=== PATIENT | male | born 1955 | race Caucasian/White ===

== ENCOUNTER 2019-09-09 13:51 | Inpatient (IN) ==
--- NOTE | 2019-09-09 14:05 | ERNOTE ---
Neuro HPI ER Record Date of Service: 09/09/19 Presenting Symptoms: confusion Time Seen by Provider: 09/09/19 13:56 Source: patient, EMS, RN notes reviewed, past records Exam Limitations: clinical condition Immunizations: IMMUNIZATION HX Immunizations Up to Date Yes History of Influenza Vaccine Yes Hx Pneumococcal Vaccination No Allergies/Adverse Reactions: Allergies Allergy/AdvReac Type Severity Reaction Status Date / Time atenolol Allergy Mild foggy brain Verified 09/09/19 14:05 naproxen [From Naprosyn] Allergy Mild odd feeling Verified 09/09/19 14:05 varenicline [From Chantix] Allergy Mild weird Verified 09/09/19 14:05 dreams Home Medications: HOME MEDICATIONS losartan 100 mg tablet 100 mg PO DAILY #30 tab 04/15/19 [Last Taken Unknown] naloxone 4 mg/actuation nasal spray 4 mg INTRANASAL Q2M PRN #2 ea 04/15/19 [Last Taken Unknown] Fluticasone Propionate [Flonase] 1 spray NS DAILY 09/09/19 [Last Taken Unknown] - History of Present Illness Narrative: Rad is a 63-year-old male brought to the emergency department by ambulance from his apartment. A well check was requested by a friend who checks on him. He was found to be sitting in his recliner nude, covered with smears of his own feces. He is emaciated and generally ill in appearance. He denies any discomfort. He is able to correctly state his name and the year, but is otherwise disoriented. He is not able to provide any history regarding his current state. His friend reported to nursing staff that he is not able to take care of himself. Onset: cannot confirm onset, continues in ER - Character of Deficits New weakness: Present: general (diffuse) Additional Deficits: Present: impaired speech, decrease ability to stand, decrease ability to walk Baseline Cognition: Present: alert but confused Prior Treament: Reports: recently seen - 3 months ago for a large laceration on his back due to falling on a lamp Review of Systems - Narrative Narrative: Unable to obtain due to patient condition Medical History (Last Reviewed 09/09/19 @ 16:11 by Medina Henriquez NP) Tennis elbow syndrome (Chronic) Onset Date: Unknown Sinus problem (Chronic) Onset Date: Unknown Shoulder pain (Chronic) Onset Date: Unknown Sees ortho tomorrow for bilateral shoulder injections. Shoulder impingement syndrome (Chronic) Onset Date: ~08/07/15 Ruptured ear drum (Acute) Onset Date: ~1976 Rhinitis, allergic (Chronic) Onset Date: ~08/07/15 With seasonal variation Partial hearing loss (Chronic) Onset Date: Unknown left Hypertension, essential, benign (Chronic) Onset Date: ~12/30/16 Cleft palate and cleft lip (Inactive) Onset Date: Unknown Asthma (Chronic) Onset Date: Unknown Arthritis (Chronic) Onset Date: ~08/07/15 multiple joints Surgical History: Surgical History (Last Reviewed 09/09/19 @ 16:11 by Medina Henriquez NP) Status post debridement Onset Date: 06/10/19 Bagan-debridement and repair of laceration on back History of nasal surgery Onset Date: ~1970 Hx of abdominal surgery Onset Date: Unknown enlarged opening sphincter to stomach as a baby Hx of appendectomy Onset Date: ~1967 repair of cleft palate Onset Date: ~1958 Family History: Family History (Last Reviewed 09/09/19 @ 16:11 by Medina Henriquez NP) Father Myocardial infarction Mother COPD (chronic obstructive pulmonary disease) Social History: (Last Reviewed 09/09/19 @ 16:11 by Medina Henriquez NP) Social History: adopted: Yes [place] [facility]: No Marital status: lives independently: Yes household members: significant other current occupational status: retired Highest education level completed: high school graduate Service: No Tobacco: Smoking Status: Current every day smoker tobacco type: cigarettes Smoking cigarettes per day: 20.0 Smoking packs per day: 1 Alcohol: alcohol intake: current Alcohol type: beer alcohol intake frequency: 0-2 drinks per day details: couple beers nightly after work Substance Use: substance use type: former substance user, marijuana, crack/cocaine Dietary Habits: caffeine: Yes caffeine comment: 3 cups/day Type: carbonated beverages Physical Exam - Physical Exam General Appearance: Present: alert, cachetic, other - In no acute distress but appears generally not well, poor hygiene, smears of fecal material over most of body Head Exam: Present: normal inspection, no evidence of injury Eye Exam: Normal inspection: bilateral, PERRL: bilateral Ears, Nose, Throat: Present: normal ENT inspection, normal pharynx Neck: Present: normal inspection, nontender, supple Respiratory: Present: no respiratory distress, normal breath sounds, no accessory muscle use, lungs clear Cardiovascular/Chest: Present: regular rate, rhythm, no murmur, normal peripheral pulses Peripheral Pulses: N=norm/S=strong/W=weak/B=bound/A=absent: Dorsalis-pedis (R): Normal, Dorsalis-pedis (L): Normal Gastrointestinal/Abdominal: Present: nontender, nondistended, soft Extremity Exam: Present: non-tender, normal range of motion, pedal edema Neurological Exam: Present: alert, other - Generalized weakness. Absent: oriented, normal mood/affect, no motor/sensory deficits Skin Exam: Present: normal color, warm/dry, other - Ecchymosis present on bilateral hips and lower back Dasia Coma Scale - Assess Eye Opening: Spontaneous Motor: Obeys Commands Verbal: Confused - Total Coma Scale Total: 14 Progress - Results and Orders Patient's Lab Results:: I have reviewed the patient's lab results. - Vital Signs Patient's Vital Signs:: I have reviewed the patient's vital signs. Vital Signs: Vital Signs 09/09/19 13:52 Temperature 36.4 C Pulse Rate 93 Respiratory Rate 28 H Blood Pressure 131/89 O2 Sat by Pulse Oximetry 100 - EKG EKG #1 EKG: NSR EKG read: Reviewed by me - CT/Ultrasound CT/Ultrasound Narrative: Non contrast head CT is without acute findings - Progress/Reassessment Chief Complaint: Altered Mental Status Progress:: Unchanged Progress Note-Subjective: 09/09/19 16:00 The patient's UA does show a urinary tract infection. His CBC was remarkable for 6 bands and a platelet count in the 80s. Blood cultures are pending. Urine culture is also pending. EKG and troponin were unremarkable. The patient's urine drug screen was negative as well as his blood alcohol level. His liver function tests are slightly elevated. He continues to be weak and confused. He is generally ill-appearing. On review of his previous records, he has lost 60 pounds since he was last seen here on 06/28/2019. Dr. Jerome is the patient's primary care provider. He was contacted and agreed to admit the patient to observation. He will be started on oral Levaquin. He has received a liter of IV NS in the emergency department. We will see how he tolerates oral intake before ordering any additional IV fluids. Departure Clinical Impression: Altered mental status Qualifiers: Altered mental status type: disorientation Qualified Code(s): R41.0 - Disorientation, unspecified Urinary tract infection Qualifiers: Urinary tract infection type: site unspecified Hematuria presence: without hematuria Qualified Code(s): N39.0 - Urinary tract infection, site not specified - Departure Disposition: Still a patient Condition: Stable Referrals: Holland Farfan MD [Primary Care Provider] -
[2019-09-09 14:42] LABS: Hematocrit 28.7 % (42.0-52.0); Mean Cell Volume 98.3 fl (78-100); Mean Corpuscular Hemoglobin 34.2 pg (27-31); Mean Corpuscular Hgb Conc 34.8 g/dl (32-36); Mean Platelet Volume 9.8 fl (8-11.3); Platelet Count 82 K/mm3 (150-450); Red Blood Count 2.92 M/mm3 (4.7-6.0); Red Cell Distribution Width 13.4 % (11.5-14.0); White Blood Count 7.8 K/mm3 (4.0-10.5)
[2019-09-09 14:45] LABS: Total Cells Counted 100
[2019-09-09 14:50] LABS: ALT 79 U/L (19-67); AST 76 U/L (0-48); Albumin * 2.9 gm/dl (3.4-5.0); Alkaline Phosphatase * 90 U/L (50-170); Anion Gap 13.4 mmol/L (6.8-13.8); BUN/Creatinine Ratio 27.1 (9.0-21.6); Bilirubin, Total 0.9 mg/dL (0.0-1.1); Blood Urea Nitrogen 32 mg/dL (6-23); Ca. Corrected For Albumin 9.3 mg/dL (8.4-10.2); Calcium * 8.7 mg/dL (7.9-10.9); Carbon Dioxide 26.9 mmol/L (24-32.6); Chloride 95 mmol/L (97-106); Glucose * 134 mg/dL (70-110); Potassium 3.3 mmol/L (3.4-4.6); Sodium 132 mmol/L (132-142); Total Protein 7.2 gm/dL (6.2-8.2)
[2019-09-09 14:51] LABS: Troponin I Less than 0.017 ng/mL (0.00-0.10)
[2019-09-09 15:15] LABS: Band 6 % (0-2.0); Eosinophil 1 % (0-3); Lymphocyte 23 % (20-51); Monocyte 8 % (0-9); Neutrophil 62 % (42-75); Neutrophil # 4.8 K/mm3 (1.3-6.0)
[2019-09-09 15:17] LABS: Platelet Estimate Decreased (NORMAL)
[2019-09-09 15:18] LABS: Toxic Granulation 1+
[2019-09-09 15:19] LABS: RBC Morphology Normal (NORMAL)
[2019-09-09 15:26] LABS: Urine Bilirubin 6 mg/dl (NEGATIVE); Urine Blood Negative /ul (NEGATIVE); Urine Ketone 5 mg/dL (NEGATIVE); Urine Protein 30 mg/dL (NEGATIVE); Urine Urobilinogen Normal (NORMAL); Urine pH 6.5 pH (5.0-7.0)
[2019-09-09 15:38] LABS: Cocaine Ur Negative (NEGATIVE); Urine Barbiturate Negative (NEGATIVE); Urine Benzodiazepines Negative (NEGATIVE); Urine Opiates Negative (NEGATIVE); Urine PCP Negative (NEGATIVE); Urine THC Negative (NEGATIVE)
[2019-09-09 15:45] LABS: Urine Nitrite Positive (NEGATIVE)
[2019-09-09 15:46] LABS: Urine Appearance Clear (CLEAR); Urine Bacteria 4+; Urine Color Brown; Urine RBC TRACE /hpf (0-5); Urine WBC TRACE /hpf (0-5)
[2019-09-09] MEDS ORDERED: LEVOFLOXACIN 500 MG TABLET PO ONE (16:14)
--- NOTE | 2019-09-09 18:08 | HP ---
Chief Complaint - Chief Complaint Date of Service: 09/09/19 Time of Service: 18:07 Chief Complaint: Mental Status Change History of Present Illness: Rad is a 63-year-old male brought to the emergency department by ambulance from his apartment. An emergency appt visit was requested by a friend who checks on him. He was found to be sitting in his recliner nude, covered with smears of his own feces. He is emaciated and generally ill in appearance. He denies any discomfort. He is able to correctly state his name and the year, but is otherwise disoriented. He is not able to provide any history regarding his current state. His friend reported to nursing staff that he is not able to take care of himself. 2 months ago he was in this hospital with a large laceration on his back from a fall. At the time, he was also intoxicated with alcohol. When I last saw him in the office 5 months ago, he said he had stopped using alcohol. He does, however, have a long history of alcohol abuse. His blood alcohol level was normal in the er today, and his urine drug screen was negative. In the ER, potassium was slightly low, albumin was low, EKG was non acute, he had a mild normochromic normocytic anemia, normal wbc count with a slight left shift, bacteruria but no pyuria, slightly elevated liver enzymes and no cxr was done. Urine and blood cultures are pending. When I examined him just now, he appears to be in a deep sleep, but in now distress. I can wake him by calling his name and shaking his shoulders, but he appears to almost immediately drift back to sleep. He had a normal head CT in the ER, and we plan an MRI tomorrow morning. We will do a CXR yet today. He was given one dose of oral levaquin in the ER, but at present is refusing food and liquids. Medical History (Last Reviewed 09/09/19 @ 18:30 by Holland Farfan MD) Tennis elbow syndrome (Chronic) Onset Date: Unknown Sinus problem (Chronic) Onset Date: Unknown Shoulder pain (Chronic) Onset Date: Unknown Sees ortho tomorrow for bilateral shoulder injections. Shoulder impingement syndrome (Chronic) Onset Date: ~08/07/15 Ruptured ear drum (Acute) Onset Date: ~1976 Rhinitis, allergic (Chronic) Onset Date: ~08/07/15 With seasonal variation Partial hearing loss (Chronic) Onset Date: Unknown left Hypertension, essential, benign (Chronic) Onset Date: ~12/30/16 Cleft palate and cleft lip (Inactive) Onset Date: Unknown Asthma (Chronic) Onset Date: Unknown Arthritis (Chronic) Onset Date: ~08/07/15 multiple joints Surgical History: Surgical History (Last Reviewed 09/09/19 @ 18:31 by Holland Farfan MD) Status post debridement Onset Date: 06/10/19 Bagan-debridement and repair of laceration on back History of nasal surgery Onset Date: ~1970 Hx of abdominal surgery Onset Date: Unknown enlarged opening sphincter to stomach as a baby Hx of appendectomy Onset Date: ~1967 repair of cleft palate Onset Date: ~1958 Family History: Family History (Last Reviewed 09/09/19 @ 18:31 by Holland Farfan MD) Father Myocardial infarction Mother COPD (chronic obstructive pulmonary disease) Social History: (Last Reviewed 09/09/19 @ 18:31 by Holland Farfan MD) Social History: adopted: Yes skilled nursing: No Marital status: lives independently: Yes household members: significant other current occupational status: retired Highest education level completed: high school graduate Service: No Tobacco: Smoking Status: Current every day smoker tobacco type: cigarettes Smoking cigarettes per day: 20.0 Smoking packs per day: 1 Alcohol: alcohol intake: current Alcohol type: beer alcohol intake frequency: 0-2 drinks per day details: couple beers nightly after work Substance Use: substance use type: former substance user, marijuana, crack/cocaine Dietary Habits: caffeine: Yes caffeine comment: 3 cups/day Type: carbonated beverages Review Of Systems (GEN) - Review of Systems Generalized/Overall Review: Present: No Symptoms Reported - unable to provide seems to be deeply sleeping. will not respond to attempts to communicate. Immunizations: IMMUNIZATION HX Immunizations Up to Date Yes History of Influenza Vaccine Yes Hx Pneumococcal Vaccination No Allergies/Adverse Reactions: Allergies Allergy/AdvReac Type Severity Reaction Status Date / Time atenolol Allergy Mild foggy brain Verified 09/09/19 14:05 naproxen [From Naprosyn] Allergy Mild odd feeling Verified 09/09/19 14:05 varenicline [From Chantix] Allergy Mild weird Verified 09/09/19 14:05 dreams Home Medications: HOME MEDICATIONS losartan 100 mg tablet 100 mg PO DAILY #30 tab 04/15/19 [Last Taken Unknown] naloxone 4 mg/actuation nasal spray 4 mg INTRANASAL Q2M PRN #2 ea 04/15/19 [Last Taken Unknown] Fluticasone Propionate [Flonase] 1 spray NS DAILY 09/09/19 [Last Taken Unknown] Exam - Exam Vital Signs: Vital Signs - Last Taken Temp 37.0 C 09/09/19 16:48 Pulse 65 09/09/19 16:48 Resp 12 09/09/19 16:48 BP 120/70 09/09/19 16:48 Pulse Ox 100 09/09/19 16:48 Constitutional: Present: Well developed, No distress, Somnolent, Elderly, Thin and frail. Absent: Alert, Oriented x3, Cooperative, Well nourished ENT Exam: Present: normal ENT inspection Eye Exam: bilateral eye: normal inspection, PERRL Neck: Present: normal inspection. Absent: lymphadenopathy (R), lymphadenopathy (L), thyromegaly Back Exam: Present: normal inspection Breasts: Present: Other - male Respiratory: Present: lungs clear, no respiratory distress Cardiovascular/Chest: Present: regular rate, rhythm, no edema, no gallop, no JVD, no murmur Peripheral Pulses: carotid (R): 1+, carotid (L): 1+, femoral (R): 1+, femoral (L): 1+ Abdomen: Present: Normal bowel sounds, soft, nondistended, no hepatospenomegaly, no masses /Rectal: Present: Exam deferred Extremity: Present: no pedal edema, normal capillary refill Skin Exam: Present: normal color, no cyanosis, cool/dry Lymphatic: Present: no adenopathy Neurologic: Absent: alert Appearance: Present: disheveled. Absent: appropriate appearance, appropriate insight, neat Eye contact: Absent: cooperative, good eye contact, normal speech Thoughts: Present: other - appears deeply somnolent Diagnostic Studies: Abnormal Lab Results 09/09/19 09/09/19 09/09/19 Range/Units 14:25 14:25 15:05 RBC 2.92 L (4.7-6.0) M/mm3 Hgb 10.0 L (13.5-18.0) gm/dL Hct 28.7 L (42.0-52.0) % MCH 34.2 H (27-31) pg Plt Count 82 L (150-450) K/mm3 Band Neuts % (Manual) 6 H (0-2.0) % Platelet Estimate Decreased L (NORMAL) Potassium 3.3 L (3.4-4.6) mmol/L Chloride 95 L (97-106) mmol/L BUN 32 H D (6-23) mg/dL BUN/Creatinine Ratio 27.1 H (9.0-21.6) Random Glucose 134 H (70-110) mg/dL AST 76 H (0-48) U/L ALT 79 H (19-67) U/L Albumin 2.9 L (3.4-5.0) gm/dl Urine Protein 30 H (NEGATIVE) mg/dL Urine Nitrate Positive H (NEGATIVE) Urine Bilirubin 6 H (NEGATIVE) mg/dl Urine Bacteria 4+ H (NONE) Laboratory Results WBC 7.8 K/mm3 (4.0-10.5) 09/09/19 14:25 RBC 2.92 M/mm3 (4.7-6.0) L 09/09/19 14:25 Hgb 10.0 gm/dL (13.5-18.0) L 09/09/19 14:25 Hct 28.7 % (42.0-52.0) L 09/09/19 14:25 MCV 98.3 fl (78-100) 09/09/19 14:25 MCH 34.2 pg (27-31) H 09/09/19 14:25 MCHC 34.8 g/dl (32-36) 09/09/19 14:25 RDW 13.4 % (11.5-14.0) 09/09/19 14:25 Plt Count 82 K/mm3 (150-450) L 09/09/19 14:25 MPV 9.8 fl (8-11.3) 09/09/19 14:25 Neutrophils % (Manual) 62 % (42-75) 09/09/19 14:25 Band Neuts % (Manual) 6 % (0-2.0) H 09/09/19 14:25 Lymphocytes % (Manual) 23 % (20-51) 09/09/19 14:25 Monocytes % (Manual) 8 % (0-9) 09/09/19 14:25 Eosinophils % (Manual) 1 % (0-3) 09/09/19 14:25 Neutrophils # (Manual) 4.8 K/mm3 (1.3-6.0) 09/09/19 14:25 Lymphocytes # (Manual) 1.8 k/mm3 (1.5-3.5) 09/09/19 14:25 Monocytes # (Manual) 0.6 k/mm3 (0.0-1.0) 09/09/19 14:25 Eosinophils # (Manual) 0.1 k/mm3 (0.0-0.7) 09/09/19 14:25 Toxic Granulation 1+ 09/09/19 14:25 Platelet Estimate Decreased (NORMAL) L 09/09/19 14:25 RBC Morphology Normal (NORMAL) 09/09/19 14:25 Sodium 132 mmol/L (132-142) 09/09/19 14:25 Plasma Sodium 133 mmol/L (130-142) 09/09/19 14:25 Potassium 3.3 mmol/L (3.4-4.6) L 09/09/19 14:25 Chloride 95 mmol/L (97-106) L 09/09/19 14:25 Carbon Dioxide 26.9 mmol/L (24-32.6) 09/09/19 14:25 Anion Gap 13.4 mmol/L (6.8-13.8) 09/09/19 14:25 BUN 32 mg/dL (6-23) H D 09/09/19 14:25 Creatinine 1.18 mg/dL (0.4-1.4) 09/09/19 14:25 Est GFR (Non-Af Amer) 66 mL/min (60-130) D 09/09/19 14:25 BUN/Creatinine Ratio 27.1 (9.0-21.6) H 09/09/19 14:25 Random Glucose 134 mg/dL (70-110) H 09/09/19 14:25 Lactic Acid, Venous 1.7 mmol/L (0.4-2.0) 09/09/19 14:25 Calcium 8.7 mg/dL (7.9-10.9) 09/09/19 14:25 Calcium Adj for Albumin 9.3 mg/dL (8.4-10.2) 09/09/19 14:25 Total Bilirubin 0.9 mg/dL (0.0-1.1) 09/09/19 14:25 AST 76 U/L (0-48) H 09/09/19 14:25 ALT 79 U/L (19-67) H 09/09/19 14:25 Alkaline Phosphatase 90 U/L (50-170) 09/09/19 14:25 Ammonia Less than 17.0 mcmol/L (11-35) 09/09/19 14:25 Creatine Kinase 24 U/L (0-259) 09/09/19 14:25 Troponin I Less than 0.017 ng/mL (0.00-0.10) 09/09/19 14:25 Total Protein 7.2 gm/dL (6.2-8.2) 09/09/19 14:25 Albumin 2.9 gm/dl (3.4-5.0) L 09/09/19 14:25 Urine Color Brown 09/09/19 15:05 Urine Appearance Clear (CLEAR) 09/09/19 15:05 Urine pH 6.5 pH (5.0-7.0) 09/09/19 15:05 Ur Specific [place] 1.020 SP.GR. (1.005-1.030) 09/09/19 15:05 Urine Protein 30 mg/dL (NEGATIVE) H 09/09/19 15:05 Urine Glucose (UA) Negative mg/dL (NEGATIVE) 09/09/19 15:05 Urine Ketones 5 mg/dL (NEGATIVE) 09/09/19 15:05 Urine Blood Negative /ul (NEGATIVE) 09/09/19 15:05 Urine Nitrate Positive (NEGATIVE) H 09/09/19 15:05 Urine Bilirubin 6 mg/dl (NEGATIVE) H 09/09/19 15:05 Urine Ictotest Negative (NEGATIVE) 09/09/19 15:05 Prot Sulfosalicylic Acd 1+ mg/dL (0) 09/09/19 15:05 Urine Urobilinogen Normal EU/dl (NORMAL) 09/09/19 15:05 Ur Leukocyte Esterase Negative /ul (NEGATIVE) 09/09/19 15:05 Urine RBC Trace /hpf (0-5) 09/09/19 15:05 Urine WBC Trace /hpf (0-5) 09/09/19 15:05 Ur Epithelial Cells 0-5 /hpf (0-5) 09/09/19 15:05 Urine Bacteria 4+ (NONE) H 09/09/19 15:05 Urine Culture Comments Culture to follow 09/09/19 15:05 Urine Opiates Screen Negative (NEGATIVE) 09/09/19 15:05 Barbiturate Screen Negative (NEGATIVE) 09/09/19 15:05 Ur Phencyclidine Scrn Negative (NEGATIVE) 09/09/19 15:05 Urine Amphetamine Negative (NEGATIVE) 09/09/19 15:05 U Benzodiazepines Scrn Negative (NEGATIVE) 09/09/19 15:05 Urine Cocaine Screen Negative (NEGATIVE) 09/09/19 15:05 Urine Marijuana (THC) Negative (NEGATIVE) 09/09/19 15:05 Ethyl Alcohol 3.0 mg/dL (0.0-10.0) 09/09/19 14:25 Assessment/Plan - Assessment/Plan (1) Altered mental status Assessment: unknown cause. ct head negative. will check vitals q 4 hours and do a brain MRI tomorrow. there was some thought the mental status change was due to a uti, but there is bacteruria without pyuria, so we will need to wait for culture reports. although his blood alcohol level was normal as was his urine drug screen, there has been a long history of alcohol abuse. he may have stopped drinking a couple days ago, which puts him at risk for withdrawal. we will give thiamine and continue to monitor. we can hopefully get a better history from him tomorrow. Problem: Acute Qualifiers: Altered mental status type: disorientation Qualified Code(s): R41.0 - Disorientation, unspecified (2) Urinary tract infection Problem: Acute Qualifiers: Urinary tract infection type: site unspecified Hematuria presence: without hematuria Qualified Code(s): N39.0 - Urinary tract infection, site not specified (3) Hypokalemia Assessment: will give IV fluids with potassium and monitor. Problem: Acute (4) Malnutrition Assessment: will address when he is awake. Problem: Acute Qualifiers: Malnutrition type: protein-calorie malnutrition Protein-calorie malnutrition severity: moderate Qualified Code(s): E44.0 - Moderate protein- calorie malnutrition (5) Elevated liver enzymes Assessment: will monitor Problem: Acute (6) Alcohol abuse Assessment: presumed Problem: Chronic (7) Hypertension, essential, benign Problem: Chronic (8) Normochromic normocytic anemia Assessment: will look for cause after discharge from this admission Problem: Chronic
[2019-09-09] MEDS: POTASSIUM CHLORIDE 20 MEQ in DEXTROSE 5%-NORMAL SALINE 990 ML IV PRN (19:54)
[2019-09-09] MEDS: THIAMINE HCL 100 MG in NORMAL SALINE 50 ML IV SCH (19:55)
[2019-09-10] MEDS: POTASSIUM CHLORIDE 20 MEQ in DEXTROSE 5%-NORMAL SALINE 990 ML IV PRN (04:27)
[2019-09-10 06:45] LABS: Hematocrit 27.8 % (42.0-52.0); Hemoglobin 9.6 gm/dL (13.5-18.0); Mean Cell Volume 99.3 fl (78-100); Mean Corpuscular Hemoglobin 34.3 pg (27-31); Mean Corpuscular Hgb Conc 34.5 g/dl (32-36); Mean Platelet Volume 10.1 fl (8-11.3); NRBC# 0.1 k/mm3 (0-1); Neutrophil % 66.8 % (42-75.0); Platelet Count 79 K/mm3 (150-450); Red Cell Distribution Width 13.2 % (11.5-14.0); White Blood Count 7.5 K/mm3 (4.0-10.5)
[2019-09-10 06:57] LABS: Albumin * 2.4 gm/dl (3.4-5.0); Anion Gap 10.5 mmol/L (6.8-13.8); BUN/Creatinine Ratio 24.8 (9.0-21.6); Bilirubin, Total 0.9 mg/dL (0.0-1.1); Ca. Corrected For Albumin 9.3 mg/dL (8.4-10.2); Calcium * 8.3 mg/dL (7.9-10.9); Carbon Dioxide 26.1 mmol/L (24-32.6); Potassium 3.6 mmol/L (3.4-4.6); Total Protein 6.2 gm/dL (6.2-8.2)
--- NOTE | 2019-09-10 07:12 | PN ---
Subjective - Date and Time Seen Date: 09/10/19 Time: 06:52 Subjective Narrative: Appeared sleeping this am but woke quickly and easily to voice. He is a little confused. He got the the day of the week, the month, the year and his location at [facility] correct, but he said someone else had just asked him that. He didn't know the President was Derrek, said the date was the and didn't have an idea if it was morning or evening or the actual time. Last night I was barely able to wake him by calling his name and shaking him by the shoulders, and he immediately went back to sleep after his eyes opened briefly. He says he smokes, but he is vague and won't establish how much. He admits to drinking a half pint, but is vague and evasive, and says maybe he has had two in the last week. I suspect his etoh intake is significant and may be part or all of the reason for this current hospital admission. His CBC is stable, but his CMP is not yet available. His vitals are stable. His BP is normal without medication. Nurses report he tends to lean towards the right and the last time they tried to get him up, it required an assist of three. Objective - Review of Systems Generalized/Overall Review: Reports: Weakness EENTM: Reports: No Symptoms Reported Respiratory: Reports: No Symptoms Reported Cardiac: Reports: No Symptoms Reported Abdominal: Reports: No Symptoms Reported Genitourinary Symptoms: Reports: No Symptoms Reported Musculoskeletal Complaints: Reports: No Symptoms Reported Neurological: Reports: No Symptoms Reported - he subjectively denies symptoms in spite of his current problems Skin: Reports: No Symptoms Reported Endocrine: Reports: No Symptoms Reported Misc: All systems neg except as marked - Vitals Vitals: Last Vital Signs Temp 36.4 C 09/09/19 22:01 Pulse 73 09/09/19 22:01 Resp 18 09/09/19 22:01 BP 116/63 09/09/19 22:01 Pulse Ox 99 09/09/19 22:01 - Abnormal Lab Findings Abnormal Lab Findings: Abnormal Lab Results 09/09/19 09/09/19 09/09/19 Range/Units 14:25 14:25 15:05 RBC 2.92 L (4.7-6.0) M/mm3 Hgb 10.0 L (13.5-18.0) gm/dL Hct 28.7 L (42.0-52.0) % MCH 34.2 H (27-31) pg Plt Count 82 L (150-450) K/mm3 Immature Gran % (Auto) (0.001-0.429) % Immature Gran # (Auto) (0.000-0.0310) K/mm3 Band Neuts % (Manual) 6 H (0-2.0) % Monocytes % (0.0-9) % Platelet Estimate Decreased L (NORMAL) Potassium 3.3 L (3.4-4.6) mmol/L Chloride 95 L (97-106) mmol/L BUN 32 H D (6-23) mg/dL BUN/Creatinine Ratio 27.1 H (9.0-21.6) Random Glucose 134 H (70-110) mg/dL AST 76 H (0-48) U/L ALT 79 H (19-67) U/L Albumin 2.9 L (3.4-5.0) gm/dl Urine Protein 30 H (NEGATIVE) mg/dL Urine Nitrate Positive H (NEGATIVE) Urine Bilirubin 6 H (NEGATIVE) mg/dl Urine Bacteria 4+ H (NONE) 09/10/19 Range/Units 06:25 RBC 2.80 L (4.7-6.0) M/mm3 Hgb 9.6 L (13.5-18.0) gm/dL Hct 27.8 L (42.0-52.0) % MCH 34.3 H (27-31) pg Plt Count 79 L (150-450) K/mm3 Immature Gran % (Auto) 0.50 H (0.001-0.429) % Immature Gran # (Auto) 0.04 H (0.000-0.0310) K/mm3 Band Neuts % (Manual) (0-2.0) % Monocytes % 9.4 H (0.0-9) % Platelet Estimate (NORMAL) Potassium (3.4-4.6) mmol/L Chloride (97-106) mmol/L BUN (6-23) mg/dL BUN/Creatinine Ratio (9.0-21.6) Random Glucose (70-110) mg/dL AST (0-48) U/L ALT (19-67) U/L Albumin (3.4-5.0) gm/dl Urine Protein (NEGATIVE) mg/dL Urine Nitrate (NEGATIVE) Urine Bilirubin (NEGATIVE) mg/dl Urine Bacteria (NONE) - Exam Constitutional: Present: Alert, Cooperative, Well developed, No distress, Elderly, Thin and frail, Looks Older than stated age. Absent: Oriented x3, Well nourished ENT Exam: Present: normal ENT inspection, hearing grossly normal Neck: Present: non-tender, normal inspection, trachea midline. Absent: lymphadenopathy (R), lymphadenopathy (L), thyromegaly Breasts: Present: Other - male Respiratory: Present: chest non-tender, lungs clear, no respiratory distress Cardiovascular/Chest: Present: normal peripheral pulses, regular rate, rhythm, no edema, no gallop, no JVD, no murmur Abdomen: Present: Normal bowel sounds, soft, nontender, nondistended, no hepatospenomegaly, no masses /Rectal: Present: Exam deferred Extremity: Present: normal range of motion, non-tender, normal inspection, other - very weak Skin Exam: Present: normal color, no cyanosis, cool/dry Lymphatic: Present: no adenopathy Neurologic: Present: abnormal gait, motor weakness. Absent: normal mood/affect, oriented x 3 Appearance: Present: disheveled, impaired insight, impaired recent memory Eye contact: Present: cooperative, good eye contact, normal speech Thoughts: Present: no apparent hallucination Assessment/Plan Plan Narrative: He is much better than last night, but still confused and very weak. His chemistries are still pending. His CBC is stable. He is to have a brain MRI this morning. He does admit to intake of hard liquor, but is very evasive and vague about the amount. He says his "lady friend" looks in on him daily, but would be willing to have home health visits. We will try to feed and ambulate him this morning, wait for remaining tests to be done, continue antibiotic and continue in-hospital observation. Disposition is pending further information. - Problems/Diagnosis (1) Altered mental status Problem: Acute Qualifiers: Altered mental status type: disorientation Qualified Code(s): R41.0 - Disorientation, unspecified (2) Weakness Problem: Acute (3) Urinary tract infection Problem: Acute Qualifiers: Urinary tract infection type: site unspecified Hematuria presence: without hematuria Qualified Code(s): N39.0 - Urinary tract infection, site not specified (4) Alcohol abuse Problem: Chronic (5) Malnutrition Problem: Acute Qualifiers: Malnutrition type: protein-calorie malnutrition Protein-calorie malnutrition severity: moderate Qualified Code(s): E44.0 - Moderate protein- calorie malnutrition (6) Hypokalemia Problem: Acute (7) Elevated liver enzymes Problem: Acute (8) Hypertension, essential, benign Problem: Chronic (9) Normochromic normocytic anemia Problem: Chronic
[2019-09-10] MEDS ORDERED: LORazepam 2 MG/ML DISP.SYRIN IV PRN ×2 (09:50)
[2019-09-10] MEDS ORDERED: HALOPERIDOL 5 MG TABLET PO PRN (09:50)
--- NOTE | 2019-09-10 09:53 | PN ---
Progess Note - Interim Date: 09/10/19 Time: 09:52 Narrative: 09/10/19 09:52 can't walk. confused. trouble voiding. unable to return home at this point, unsafe. Brain MRI is non acute. most likely diagnosis is encephalopathy due to alcohol withdrawal.
[2019-09-10] MEDS: THIAMINE HCL 100 MG in NORMAL SALINE 50 ML IV SCH (09:58)
[2019-09-10 10:51] LABS: CRP 5.4 mg/dL (0.0-0.9); Magnesium 1.9 mg/dL (1.2-2.8); TSH * 2.369 uIU/mL (0.358-3.74)
[2019-09-10] MEDS ORDERED: LEVOFLOXACIN 500 MG TABLET PO SCH (11:00)
--- NOTE | 2019-09-10 12:46 | PN ---
Progess Note - Interim Date: 09/10/19 Time: 12:44 Narrative: 09/10/19 12:44 Following labs are consistent with practicing active alcoholism: macrocytic anemia elevated liver enzymes thrombocytopenia. tsh today ok. crp slightly elevated, but sed rate normal.
[2019-09-10] MEDS: POTASSIUM CHLORIDE 20 MEQ in DEXTROSE 5%-NORMAL SALINE 990 ML IV SCH ×2 (14:30→22:29)
[2019-09-11 08:28] LABS: Anion Gap 12.1 mmol/L (6.8-13.8); BUN/Creatinine Ratio 17.6 (9.0-21.6); Calcium * 8.2 mg/dL (7.9-10.9); Carbon Dioxide 26.1 mmol/L (24-32.6); Estimated Creat Clear 89.6; Potassium 3.2 mmol/L (3.4-4.6)
--- NOTE | 2019-09-11 08:29 | PN ---
Subjective - Date and Time Seen Date: 09/11/19 Time: 08:27 Subjective Narrative: He feels like he is doing better than yesterday. He did have an incontinent of urine per his nurse. He is a bit shaky today, which he states is not normal for him. Objective - Review of Systems Generalized/Overall Review: Denies: Fever Respiratory: Denies: Cough, Shortness of Breath Cardiac: Denies: Chest Pain Abdominal: Denies: Vomiting, Constipation Genitourinary Symptoms: Reports: Incontinent, Dysuria Musculoskeletal Complaints: Reports: No Symptoms Reported Neurological: Reports: Tremors - Vitals Vitals: Last Vital Signs Temp 36.6 C 09/11/19 06:50 Pulse 69 09/11/19 06:50 Resp 20 09/11/19 06:50 BP 132/76 09/11/19 06:50 Pulse Ox 100 09/11/19 06:50 - Abnormal Lab Findings Abnormal Lab Findings: Abnormal Lab Results 09/10/19 09/10/19 Range/Units 06:25 06:25 ESR 24 H (0-10) mm/hr C-Reactive Prot, Quant 5.4 H (0.0-0.9) mg/dL - Exam Constitutional: Present: Alert, Cooperative, Looks Older than stated age Respiratory: Present: normal breath sounds, no respiratory distress Cardiovascular/Chest: Present: regular rate, rhythm Abdomen: Present: Normal bowel sounds, soft, nontender Extremity: Absent: pedal edema Skin Exam: Present: other - multiple superficial bruising of bilateral upper arms Neurologic: Present: alert - Awake and conversational, answers questions Appearance: Present: impaired recent memory Eye contact: Present: cooperative Assessment/Plan - Problems/Diagnosis (1) Encephalopathy Problem: Acute Narrative: Possible Wernicke's encephalopathy. Negative MRI, no significant electrolyte abnormalities. Chart review shows he has a history of chronic alcohol use. Will obtain carbohydrate deficient transferrin, which can tell us more about potential heavy alcohol use over the last 6 weeks. EtOH and UDS were negative on admission. Maximum CIWA score of 8 thus far. He has not required Ativan. He is receiving thiamine and folic acid. (2) Hypokalemia Problem: Acute Narrative: Potassium level of 3.2 today. Will administer liquid potassium today. Continue D5 with KCl. He reports having no difficulty swallowing, but he is not eating very much. If he actually does not have dysphagia, can administer the tablet tomorrow. (3) Malnutrition Problem: Acute Qualifiers: Malnutrition type: protein-calorie malnutrition Protein-calorie malnutrition severity: moderate Qualified Code(s): E44.0 - Moderate protein- calorie malnutrition Narrative: He is still eating very little. We will continue the D5 with KCl. (4) Dysuria Problem: Chronic Narrative: His initial urinalysis was positive for 4+ bacteria, nitrates, and protein. However, interestingly his urine culture was negative. Since he is having some trouble urinating, it is appropriate to treat him for a UTI. He has gotten 2 doses of Levaquin, but Levaquin can cause some confusion. Since he is having co nfusion, will hold this and give a dose of fosfomycin. 1 dose of fosfomycin is sufficient to treat UTI. He reports his difficulty starting his urine stream is chronic. Looking at the notes, when he feels like he cannot urinate, there is only a very small amount in his bladder. The most that was removed during a straight cath was 300. 300 cc is around the threshold where the urge to urinate begins. We will stop the nursing order to automatically straight cath every 4 hours. If he has more than 500 his bladder and is uncomfortable, then okay to straight cath. (5) Weakness Problem: Acute Narrative: He has been thus far unable to walk on his own. Appreciate physical therapy assistance. Likely recommend rehab placement on DC. (6) Normochromic normocytic anemia Problem: Chronic Narrative: Hemoglobin of 9.6, which is decreased from his baseline of normal. Repeat pending in a.m.
[2019-09-11] MEDS: THIAMINE HCL 100 MG in NORMAL SALINE 50 ML IV SCH (08:37)
[2019-09-11] MEDS: FOLIC ACID 1 MG TABLET PO SCH (08:39)
[2019-09-11] MEDS: MULTIVITAMINS 1 CAP CAPSULE PO SCH (08:39)
[2019-09-11] MEDS ORDERED: POTASSIUM CHLORIDE 20 MEQ/15 ML UDC PO SCH (09:00)
[2019-09-11] MEDS ORDERED: FOSFOMYCIN TROMETHAMINE 3 GM PACKET PO ONE (09:01)
[2019-09-11] MEDS ORDERED: POTASSIUM CHLORIDE 20 MEQ/15 ML UDC PO ONE (09:30)
[2019-09-11] MEDS: POTASSIUM CHLORIDE 20 MEQ in DEXTROSE 5%-NORMAL SALINE 990 ML IV SCH ×3 (09:51→18:52)
[2019-09-11] MEDS: TAMSULOSIN HCL 0.4 MG CAP.SR.24H PO SCH (12:46)
[2019-09-11] MEDS: NICOTINE 21 MG PATC TD SCH (16:08)
[2019-09-11] MEDS: VANCOMYCIN HCL 50 MG/ML BTL PO SCH ×2 (17:40→22:04)
[2019-09-12] MEDS: POTASSIUM CHLORIDE 20 MEQ in DEXTROSE 5%-NORMAL SALINE 990 ML IV SCH ×3 (02:32→20:25)
[2019-09-12] MEDS: VANCOMYCIN HCL 50 MG/ML BTL PO SCH ×4 (04:11→22:11)
[2019-09-12 06:45] LABS: Hematocrit 25.2 % (42.0-52.0); Hemoglobin 8.3 gm/dL (13.5-18.0); Mean Cell Volume 103.7 fl (78-100); Mean Corpuscular Hemoglobin 34.2 pg (27-31); Mean Corpuscular Hgb Conc 32.9 g/dl (32-36); Neutrophil # 5.2 K/mm3 (1.3-6.0); Platelet Count 84 K/mm3 (150-450); Red Blood Count 2.43 M/mm3 (4.7-6.0); Red Cell Distribution Width 13.8 % (11.5-14.0); White Blood Count 8.8 K/mm3 (4.0-10.5)
[2019-09-12 06:59] LABS: Albumin * 2.2 gm/dl (3.4-5.0); Anion Gap 11.4 mmol/L (6.8-13.8); BUN/Creatinine Ratio 13.6 (9.0-21.6); Bilirubin, Total 0.4 mg/dL (0.0-1.1); Ca. Corrected For Albumin 9.4 mg/dL (8.4-10.2); Calcium * 8.3 mg/dL (7.9-10.9); Carbon Dioxide 23.8 mmol/L (24-32.6); Potassium 3.2 mmol/L (3.4-4.6); Total Protein 5.4 gm/dL (6.2-8.2)
[2019-09-12] MEDS: TAMSULOSIN HCL 0.4 MG CAP.SR.24H PO SCH (08:11)
[2019-09-12] MEDS: FOLIC ACID 1 MG TABLET PO SCH (08:11)
[2019-09-12] MEDS: MULTIVITAMINS 1 CAP CAPSULE PO SCH (08:12)
[2019-09-12] MEDS: THIAMINE HCL 100 MG in NORMAL SALINE 50 ML IV SCH (08:12)
--- NOTE | 2019-09-12 09:19 | PN ---
Subjective - Date and Time Seen Date: 09/12/19 Time: 09:16 Subjective Narrative: He has repeatedly gotten up on his own overnight, and feels like he needs to urinate very frequently, as much as several times per hour. He is still confused. Objective - Review of Systems Generalized/Overall Review: Reports: No Symptoms Reported - he is unable to contribute to ROS Abdominal: Reports: Diarrhea - 3-4 times overnight Genitourinary Symptoms: Reports: Urgency, Incontinent - Vitals Vitals: Last Vital Signs Temp 36.7 C 09/12/19 06:46 Pulse 68 09/12/19 06:46 Resp 12 09/12/19 06:46 BP 147/79 09/12/19 06:46 Pulse Ox 100 09/12/19 06:46 - Abnormal Lab Findings Abnormal Lab Findings: Abnormal Lab Results 09/11/19 09/12/19 09/12/19 Range/Units 14:33 06:30 06:30 RBC 2.43 L (4.7-6.0) M/mm3 Hgb 8.3 L (13.5-18.0) gm/dL Hct 25.2 L (42.0-52.0) % MCV 103.7 H (78-100) fl MCH 34.2 H (27-31) pg Plt Count 84 L (150-450) K/mm3 Immature Gran % (Auto) 2.10 H (0.001-0.429) % Immature Gran # (Auto) 0.18 H (0.000-0.0310) K/mm3 Monocytes % 11.7 H (0.0-9) % Potassium 3.2 L (3.4-4.6) mmol/L Chloride 110 H (97-106) mmol/L Carbon Dioxide 23.8 L (24-32.6) mmol/L Random Glucose 126 H (70-110) mg/dL AST 94 H (0-48) U/L ALT 81 H (19-67) U/L Total Protein 5.4 L (6.2-8.2) gm/dL Albumin 2.2 L (3.4-5.0) gm/dl Stl C.difficile Tox A&B Positive H (Negative) - Exam Constitutional: Present: No distress, Looks Older than stated age Respiratory: Present: normal breath sounds, no respiratory distress Cardiovascular/Chest: Present: regular rate, rhythm Abdomen: Present: soft, nontender, other - hyperactive bowel sounds Extremity: Absent: lower extremity edema Neurologic: Present: other - wakens easily, but asks how I got in his apartment. Was not aware he was in the hospital, or how long he'd been here bilateral hand tremor, resolves at rest Appearance: Present: impaired recent memory Assessment/Plan - Problems/Diagnosis (1) Encephalopathy Problem: Acute Narrative: Possible Wernicke's encephalopathy. Negative MRI, no significant electrolyte abnormalities. Chart review shows he has a history of chronic alcohol use. Will obtain carbohydrate deficient transferrin, which can tell us more about potential heavy alcohol use over the last 6 weeks. EtOH and UDS were negative on admission. Maximum CIWA score still has not been higher than 8. He has not required Ativan. He is receiving thiamine and folic acid. He is not currently able to make medical decisions. He had forgotten that he was in the hospital on my exam this morning. (2) C. difficile colitis Problem: Acute Narrative: Tested positive for C. difficile yesterday and 125 mg p.o. vancomycin every 4 hours has been started. He did have 3 or 4 diarrheal stools overnight. (3) Urinary tract infection Problem: Acute Qualifiers: Urinary tract infection type: site unspecified Hematuria presence: without hematuria Qualified Code(s): N39.0 - Urinary tract infection, site not specified Narrative: His urinalysis was positive for 4+ bacteria and nitrates, however his urine culture was negative. He is having urine symptoms of urinary frequency, so anticipate he did have a urinary tract infection, and I do not trust the results of his urine culture. He has been treated with 2 doses of Levaquin and a dose of fosfomycin. (4) Hypokalemia Problem: Acute Narrative: Potassium still low at 3.2 today despite 40 mEq daily p.o. replacement and 20 mEq in his IV. Will increase po replacement to 40 mEq bid, and recheck in am. (5) Urinary urgency Problem: Acute Narrative: Could be due to a UTI. He is a fall risk, but keeps trying to get up on his own frequently because he feels like he needs to urinate. He has been treated for the UTI with a couple of doses of Levaquin, and a dose of fosfomycin. Will start oxybutynin to see if he is having bladder spasms. I have significant concern for him falling, so if the oxybutynin is not helpful, may temporarily insert a catheter to see if that keeps him from trying to get up out of bed on his own. (6) Malnutrition Problem: Acute Qualifiers: Malnutrition type: protein-calorie malnutrition Protein-calorie malnutrition severity: moderate Qualified Code(s): E44.0 - Moderate protein- calorie malnutrition Narrative: He is still not eating very much, so we will continue D5 with KCl IV fluids and add ensure. Ensure added to meals. (7) Weakness Problem: Acute Narrative: Continue working with PT, who has recommended rehab placement after DC. (8) Normochromic normocytic anemia Problem: Chronic Narrative: His MCV was within normal limits, but is increased today, so today technically he meets criteria for macrocytic anemia. Will obtain peripheral smear and Vit B12 level in am. He has no active signs of bleeding. His hemoglobin has decreased from 9.6 yesterday to 8.3 today. Anticipate his malnutrition may be contributing, as well as his probable chronic alcohol use.
[2019-09-12] MEDS: OXYBUTYNIN CHLORIDE 5 MG TABLET PO SCH ×2 (10:21→21:06)
[2019-09-12] MEDS: POTASSIUM CHLORIDE 20 MEQ TABLET.SA PO SCH ×2 (10:21→16:30)
[2019-09-12] MEDS: NICOTINE 21 MG PATC TD SCH (16:29)
[2019-09-13] MEDS: POTASSIUM CHLORIDE 20 MEQ in DEXTROSE 5%-NORMAL SALINE 990 ML IV SCH ×4 (04:09→20:17)
[2019-09-13] MEDS: VANCOMYCIN HCL 50 MG/ML BTL PO SCH ×4 (04:44→22:59)
[2019-09-13 06:36] LABS: Hematocrit 24.6 % (42.0-52.0); Mean Cell Volume 103.4 fl (78-100); Mean Corpuscular Hemoglobin 33.6 pg (27-31); Mean Corpuscular Hgb Conc 32.5 g/dl (32-36); Mean Platelet Volume 10.4 fl (8-11.3); Neutrophil # 5.7 K/mm3 (1.3-6.0); Neutrophil % 60.7 % (42-75.0); Platelet Count 87 K/mm3 (150-450); Red Blood Count 2.38 M/mm3 (4.7-6.0); Red Cell Distribution Width 14.5 % (11.5-14.0); White Blood Count 9.3 K/mm3 (4.0-10.5)
[2019-09-13 07:11] LABS: Albumin * 2.2 gm/dl (3.4-5.0); Anion Gap 11.1 mmol/L (6.8-13.8); BUN/Creatinine Ratio 6.3 (9.0-21.6); Bilirubin, Total 0.4 mg/dL (0.0-1.1); Ca. Corrected For Albumin 9.6 mg/dL (8.4-10.2); Calcium * 8.5 mg/dL (7.9-10.9); Carbon Dioxide 22.8 mmol/L (24-32.6); Potassium 3.9 mmol/L (3.4-4.6); Total Protein 5.7 gm/dL (6.2-8.2)
[2019-09-13] MEDS: POTASSIUM CHLORIDE 20 MEQ TABLET.SA PO SCH ×2 (09:37→17:44)
[2019-09-13] MEDS: FOLIC ACID 1 MG TABLET PO SCH (09:37)
[2019-09-13] MEDS: OXYBUTYNIN CHLORIDE 5 MG TABLET PO SCH (09:37)
[2019-09-13] MEDS: TAMSULOSIN HCL 0.4 MG CAP.SR.24H PO SCH (09:37)
[2019-09-13] MEDS: MULTIVITAMINS 1 CAP CAPSULE PO SCH (09:37)
[2019-09-13] MEDS: THIAMINE HCL 100 MG in NORMAL SALINE 50 ML IV SCH (09:38)
[2019-09-13] MEDS: LORazepam 2 MG/ML DISP.SYRIN IV PRN ×4 (09:51→21:07)
--- NOTE | 2019-09-13 14:22 | PN ---
Subjective - Date and Time Seen Date: 09/13/19 Time: 14:04 Subjective Narrative: He has had some diarrhea in the hospital. Over the weekend a friend reported he has had diarrhea for two weeks. At that point, C. dif test was ordered this weekend, which was positive for C. dif. Is now on oral vancomycin. On-call doctor switched his UTI antibiotic over the weekend also. Has been confused all along, but today became restless, more tremulous and almost combative at times. Over the weekend he was started on oxybutinin and flomax for his bladder problems. Bladder problems are better, but the oxybutinin may be the cause of this accelerated confusion with aggitation. Ativan 2 mg IV has helped a little bit earlier today. This could still represent Warnecke's, unresponsive to current dose of thiamine. There yet remains the possibility of alcohol withdrawal now becoming more severe, but the time line is long for that. We will stop oxybutinin and flomax, rely of ativan IV prn, redo some diagnostic studies, and increase the dose of IV thiamine. We will continue in hospital management. Objective - Review of Systems Generalized/Overall Review: Reports: No Symptoms Reported - confused, mumbling, unable to provide any useful history. - Vitals Vitals: Last Vital Signs Temp 36.7 C 09/13/19 12:56 Pulse 66 09/13/19 12:56 Resp 16 09/13/19 12:56 BP 154/83 H 09/13/19 12:56 Pulse Ox 100 09/13/19 12:56 - Abnormal Lab Findings Abnormal Lab Findings: Abnormal Lab Results 09/13/19 09/13/19 Range/Units 06:28 06:28 RBC 2.38 L (4.7-6.0) M/mm3 Hgb 8.0 L (13.5-18.0) gm/dL Hct 24.6 L (42.0-52.0) % MCV 103.4 H (78-100) fl MCH 33.6 H (27-31) pg RDW 14.5 H (11.5-14.0) % Plt Count 87 L (150-450) K/mm3 Immature Gran % (Auto) 2.60 H (0.001-0.429) % Immature Gran # (Auto) 0.24 H (0.000-0.0310) K/mm3 Monocytes % 10.4 H (0.0-9) % Chloride 108 H (97-106) mmol/L Carbon Dioxide 22.8 L (24-32.6) mmol/L BUN 5 L D (6-23) mg/dL BUN/Creatinine Ratio 6.3 L (9.0-21.6) Random Glucose 116 H (70-110) mg/dL AST 86 H (0-48) U/L ALT 80 H (19-67) U/L Total Protein 5.7 L (6.2-8.2) gm/dL Albumin 2.2 L (3.4-5.0) gm/dl Vitamin B12 1963 H (193-986) pg/mL Comments:: Hgb stable. 8 today, 8.3 yesterday. Macrocytic anemia. Low platelets stable. Slight liver enzyme elevation stable. Potassium normal. Protein and albumin both low. B12 level high. BUN low, also consistent with malnutrition. - Exam Constitutional: Present: Well developed, Lethargic - also somewhat aggitated now and quite confused, Elderly, Thin and frail ENT Exam: Present: normal ENT inspection Neck: Present: normal inspection, trachea midline. Absent: lymphadenopathy (R), lymphadenopathy (L), stiff neck, thyromegaly Respiratory: Present: lungs clear, no respiratory distress Cardiovascular/Chest: Present: normal peripheral pulses, regular rate, rhythm, no edema, no gallop, no JVD, no murmur Abdomen: Present: Normal bowel sounds, soft, nontender, nondistended, no hepatospenomegaly, no masses /Rectal: Present: Exam deferred Extremity: Present: normal inspection, no pedal edema Skin Exam: Present: normal color, no cyanosis, cool/dry, other - some brusing, especially on forearms. Lymphatic: Present: no adenopathy Neurologic: Present: disoriented x 3 Appearance: Present: other Eye contact: Present: other Thoughts: Present: incoherent Assessment/Plan - Problems/Diagnosis (1) Altered mental status Problem: Acute Qualifiers: Altered mental status type: disorientation Qualified Code(s): R41.0 - Disorientation, unspecified Narrative: May be oxybutinin. will stop it. may take a few days for effect to wear off. May be Wernicke's unresponsive to current dose of Thiamine..........will increase dose. May be delayed onset alcohol withdrawal........will continue as needed Ativan. Will repeat blood work and an EKG. Will continue to monitor and treat in hospital. (2) Clostridium difficile diarrhea Problem: Acute (3) Weakness Problem: Acute (4) Urinary tract infection Problem: Acute Qualifiers: Urinary tract infection type: site unspecified Hematuria presence: without hematuria Qualified Code(s): N39.0 - Urinary tract infection, site not specified (5) Alcohol abuse Problem: Chronic (6) Malnutrition Problem: Acute Qualifiers: Malnutrition type: protein-calorie malnutrition Protein-calorie malnutri tion severity: moderate Qualified Code(s): E44.0 - Moderate protein-calorie malnutrition Narrative: low protein, low albumin, low BUN (7) Macrocytic anemia Problem: Acute Narrative: probably subacute (8) Hypokalemia Problem: Resolved (9) Elevated liver enzymes Problem: Acute (10) Hypertension, essential, benign Problem: Chronic
[2019-09-13 14:39] LABS: ALT 86 U/L (19-67); AST 89 U/L (0-48); Albumin * 2.3 gm/dl (3.4-5.0); Alkaline Phosphatase * 103 U/L (50-170); Amylase * 143 U/L (25-115); Anion Gap 12.1 mmol/L (6.8-13.8); BUN/Creatinine Ratio 6.5 (9.0-21.6); Bilirubin, Total 0.4 mg/dL (0.0-1.1); Blood Urea Nitrogen 5 mg/dL (6-23); Ca. Corrected For Albumin 9.5 mg/dL (8.4-10.2); Calcium * 8.5 mg/dL (7.9-10.9); Carbon Dioxide 23.9 mmol/L (24-32.6); Chloride 106 mmol/L (97-106); Glucose * 106 mg/dL (70-110); Lipase 958 U/L (73-393); Sodium 138 mmol/L (132-142); Total Protein 5.9 gm/dL (6.2-8.2)
[2019-09-13 14:40] LABS: Hematocrit 25.9 % (42.0-52.0); Hemoglobin 8.5 gm/dL (13.5-18.0); Mean Cell Volume 103.2 fl (78-100); Mean Corpuscular Hemoglobin 33.9 pg (27-31); Mean Corpuscular Hgb Conc 32.8 g/dl (32-36); Mean Platelet Volume 9.9 fl (8-11.3); Neutrophil # 6.6 K/mm3 (1.3-6.0); Neutrophil % 64.5 % (42-75.0); Red Blood Count 2.51 M/mm3 (4.7-6.0); Red Cell Distribution Width 14.6 % (11.5-14.0); White Blood Count 10.2 K/mm3 (4.0-10.5)
[2019-09-13 14:42] LABS: Platelet Count 96 K/mm3 (150-450)
[2019-09-13 14:50] LABS: Troponin I Less than 0.017 ng/mL (0.00-0.10)
--- NOTE | 2019-09-13 16:58 | PN ---
Progess Note - Interim Date: 09/13/19 Time: 16:56 Narrative: 09/13/19 16:56 EKG and other repeat labs stable. troponin not elevated. miniscule elevation in amylase, and modest elevation in lipase. may have (alcoholic) pancreatitis. plan repeat enzymes in AM and do CT of abdomen/pelvis in am. will also repeat other labs and check a serum ammonia tomorrow am.
[2019-09-13] MEDS ORDERED: THIAMINE HCL 250 MG in NORMAL SALINE 50 ML IV SCH (17:00)
[2019-09-13] MEDS: THIAMINE HCL 100 MG TABLET PO SCH (17:44)
[2019-09-13] MEDS: SACCHAROMYCES BOULARDII 250 MG CAPSULE PO SCH (20:21)
[2019-09-14] MEDS: LORazepam 2 MG/ML DISP.SYRIN IV PRN ×7 (03:06→23:24)
[2019-09-14] MEDS: VANCOMYCIN HCL 50 MG/ML BTL PO SCH ×4 (04:16→23:17)
[2019-09-14] MEDS: POTASSIUM CHLORIDE 20 MEQ in DEXTROSE 5%-NORMAL SALINE 990 ML IV SCH ×5 (04:17→23:18)
[2019-09-14 06:21] LABS: Hematocrit 26.6 % (42.0-52.0); Hemoglobin 8.9 gm/dL (13.5-18.0); Mean Cell Volume 100.4 fl (78-100); Mean Corpuscular Hemoglobin 33.6 pg (27-31); Mean Corpuscular Hgb Conc 33.5 g/dl (32-36); Mean Platelet Volume 10.3 fl (8-11.3); Neutrophil % 69.1 % (42-75.0); Platelet Count 97 K/mm3 (150-450); Red Blood Count 2.65 M/mm3 (4.7-6.0); Red Cell Distribution Width 14.2 % (11.5-14.0); White Blood Count 10.1 K/mm3 (4.0-10.5)
[2019-09-14 06:30] LABS: Anion Gap 9.5 mmol/L (6.8-13.8); BUN/Creatinine Ratio 2.6 (9.0-21.6); Calcium * 8.5 mg/dL (7.9-10.9); Carbon Dioxide 28.3 mmol/L (24-32.6); Estimated Creat Clear 107.3; Potassium 3.8 mmol/L (3.4-4.6)
--- NOTE | 2019-09-14 07:58 | PN ---
Progess Note - Interim Date: 09/14/19 Time: 07:56 Narrative: 09/14/19 07:56 CBC and chemistries stable. Path review of CBC smear showed only macrocytic anemia and mild thrombocytopenia. ABGs yesterday show completely compensated metabolic acidosis, most likely directly related to current illness(es). Amylase and lipase almost normal. CT scan for today.
--- NOTE | 2019-09-14 08:09 | PN ---
Progess Note - Interim Date: 09/14/19 Time: 08:08 Narrative: 09/14/19 08:04 Withdrawal delirium (DTs) typically begins between 72 and 96 hours after the patients last drink and has been reported to occur in 1 to 4 percent of patients hospitalized for alcohol withdrawal . Retrospective studies have suggested the following clinical risk factors though not all are borne out consistently across data: Prior withdrawal delirium. Specific signs of chronic alcohol intake, chronic illness including cirrhosis and/or malnutrition, including low or low-normal platelet, potassium, and magnesium levels. Development of alcohol withdrawal with a positive blood alcohol level. Clinical [place] Withdrawal Assessment Scale for Alcohol Revised scores above 15 (especially in association with a systolic blood pressure >150 mm Hg or a heart rate >100 beats per minute). Increasing age. Recent misuse of other agents which depress the central nervous system, such as benzodiazepines. Concurrent illness, such as respiratory, cardiac, or gastrointestinal disease. Mortality rates from withdrawal delirium were historically as high as 20 percent. With appropriate medical management, the mortality rate is between 1 and 4 percent, depending on the setting. has been attributed to cardiovascular complications, hyperthermia, aspiration, and severe fluid and electrolyte disorders. Mr Hogan began significant aggitated symptoms early yesterday morning, a little less than 96 hours ago. He has evidence of malnutrition and low platelet level. Starting yesterday, his CIWAS was significantly, and remains significantly, elevated. He is older (63). He has concurrent illness...........at least C dif colitis, and perhaps, resolving pancreatitis. The chance that his current delerium/aggitation problems are due to DTs is high.
[2019-09-14] MEDS ORDERED: THIAMINE HCL 100 MG in NORMAL SALINE 50 ML IV SCH (09:00)
[2019-09-14] MEDS: POTASSIUM CHLORIDE 20 MEQ TABLET.SA PO SCH (09:33)
[2019-09-14] MEDS: SACCHAROMYCES BOULARDII 250 MG CAPSULE PO SCH (09:33)
[2019-09-14] MEDS: MULTIVITAMINS 1 CAP CAPSULE PO SCH (09:33)
[2019-09-14] MEDS: FOLIC ACID 1 MG TABLET PO SCH (09:33)
[2019-09-14] MEDS: THIAMINE HCL 100 MG TABLET PO SCH (09:33)
[2019-09-14] MEDS ORDERED: NORMAL SALINE IV SCH (11:00)
[2019-09-14] MEDS ORDERED: MULTIVIT INFUSN ADULT K IV SCH (11:00)
--- NOTE | 2019-09-14 11:08 | PN ---
Progess Note - Interim Date: 09/14/19 Time: 11:07 Narrative: 09/14/19 11:07 ct ok. no evidence of pancreatitis by ct. slight liver enlargement and fatty infiltration. mild non specific gallbladder inflammation. most likely had mild now resolved pancreatitis and we will maintain that diagnosis.
[2019-09-14] MEDS: NORMAL SALINE IV SCH (11:33)
[2019-09-14] MEDS: MULTIVIT INFUSN ADULT K IV SCH (11:33)
--- NOTE | 2019-09-14 12:24 | PN ---
Subjective - Date and Time Seen Date: 09/14/19 Time: 12:10 Subjective Narrative: He has had some diarrhea in the hospital. Diarrhea has improved. Still restless and confused. Mainly mumbles. Appears to be in no acute distress. This could still represent Warnecke's, unresponsive to current dose of thiamine. There yet remains the possibility of alcohol withdrawal now becoming more severe since yesterday morning was a little less than 96 hours and we don't know when his last drink prior to admission was, understanding his ER blood etoh level was normal. Amylase lipase back to normal. NH3 was normal. CT abdomen and pelvis today unremarkable. Nevertheless, I think he had mild pancreatitis which has now resolved. PO nutrition has become an issue. we will obtain a professional fee coder consult. We will continue in hospital management. Objective - Review of Systems Generalized/Overall Review: Reports: No Symptoms Reported - unable to provide a review of symptoms. - Vitals Vitals: Last Vital Signs Temp 37.1 C 09/14/19 07:00 Pulse 82 09/14/19 07:00 Resp 20 09/14/19 07:00 BP 143/65 09/14/19 07:00 Pulse Ox 98 09/14/19 07:00 - Abnormal Lab Findings Abnormal Lab Findings: Abnormal Lab Results 09/13/19 09/13/19 09/13/19 Range/Units 14:15 14:15 16:50 RBC 2.51 L (4.7-6.0) M/mm3 Hgb 8.5 L (13.5-18.0) gm/dL Hct 25.9 L (42.0-52.0) % MCV 103.2 H (78-100) fl MCH 33.9 H (27-31) pg RDW 14.6 H (11.5-14.0) % Plt Count 96 L (150-450) K/mm3 Immature Gran % (Auto) 2.30 H (0.001-0.429) % Immature Gran # (Auto) 0.24 H (0.000-0.0310) K/mm3 Lymphocytes % (20-51) % Neutrophils # 6.6 H (1.3-6.0) K/mm3 pCO2 24.4 L (35.0-48.0) mmHg HCO3 15.8 L (21.0-28.0) mmol/L Total CO2 16.6 L (19.0-24.0) mmol/L Base Excess -7.4 L (-2.0-3.0) mmol/L Carbon Dioxide 23.9 L (24-32.6) mmol/L BUN 5 L (6-23) mg/dL BUN/Creatinine Ratio 6.5 L (9.0-21.6) Random Glucose (70-110) mg/dL AST 89 H (0-48) U/L ALT 86 H (19-67) U/L Total Protein 5.9 L (6.2-8.2) gm/dL Albumin 2.3 L (3.4-5.0) gm/dl Amylase 143 H (25-115) U/L Lipase 958 H (73-393) U/L 09/14/19 09/14/19 Range/Units 06:10 06:10 RBC 2.65 L (4.7-6.0) M/mm3 Hgb 8.9 L (13.5-18.0) gm/dL Hct 26.6 L (42.0-52.0) % MCV 100.4 H (78-100) fl MCH 33.6 H (27-31) pg RDW 14.2 H (11.5-14.0) % Plt Count 97 L (150-450) K/mm3 Immature Gran % (Auto) 1.30 H (0.001-0.429) % Immature Gran # (Auto) 0.13 H (0.000-0.0310) K/mm3 Lymphocytes % 19.5 L (20-51) % Neutrophils # 7.0 H (1.3-6.0) K/mm3 pCO2 (35.0-48.0) mmHg HCO3 (21.0-28.0) mmol/L Total CO2 (19.0-24.0) mmol/L Base Excess (-2.0-3.0) mmol/L Carbon Dioxide (24-32.6) mmol/L BUN 2 L D (6-23) mg/dL BUN/Creatinine Ratio 2.6 L (9.0-21.6) Random Glucose 116 H (70-110) mg/dL AST (0-48) U/L ALT (19-67) U/L Total Protein (6.2-8.2) gm/dL Albumin (3.4-5.0) gm/dl Amylase (25-115) U/L Lipase 508 H (73-393) U/L - Exam Constitutional: Present: Well developed, Elderly, Looks Older than stated age - confused and mumbling. responds to voice, but doesn't follow commands.. Absent: Well nourished ENT Exam: Present: normal ENT inspection Neck: Present: normal inspection. Absent: lymphadenopathy (R), lymphadenopathy (L), thyromegaly Respiratory: Present: lungs clear, no respiratory distress Cardiovascular/Chest: Present: regular rate, rhythm, no edema, no gallop, no JVD, no murmur Abdomen: Present: Normal bowel sounds, soft, nondistended, no hepatospenomegaly, no masses /Rectal: Present: Exam deferred Extremity: Present: normal inspection, normal capillary refill Skin Exam: Present: normal color, no cyanosis, cool/dry, other - bruises forearm s Lymphatic: Present: no adenopathy Neurologic: Present: other Appearance: Present: other Eye contact: Absent: cooperative, good eye contact, normal speech Thoughts: Present: other Assessment/Plan - Problems/Diagnosis (1) Altered mental status Problem: Acute Qualifiers: Altered mental status type: disorientation Qualified Code(s): R41.0 - Disorientation, unspecified (2) Clostridium difficile diarrhea Problem: Acute (3) Pancreatitis Problem: Resolved Qualifiers: Chronicity: acute Pancreatitis type: alcohol induced Acute pancreatitis complication: no infection or necrosis Qualified Code(s): K85.20 - Alcohol induced acute pancreatitis without necrosis or infection (4) Weakness Problem: Acute (5) Urinary tract infection Problem: Acute Qualifiers: Urinary tract infection type: site unspecified Hematuria presence: without hematuria Qualified Code(s): N39.0 - Urinary tract infection, site not specified (6) Alcohol abuse Problem: Chronic (7) Malnutrition Problem: Acute Qualifiers: Malnutrition type: protein-calorie malnutrition Protein-calorie malnutrition severity: moderate Qualified Code(s): E44.0 - Moderate protein- calorie malnutrition (8) Macrocytic anemia Problem: Acute (9) Hypokalemia Problem: Resolved (10) Elevated liver enzymes Problem: Acute (11) Hypertension, essential, benign Problem: Chronic
--- NOTE | 2019-09-14 15:51 | PN ---
Progess Note - Interim Date: 09/14/19 Time: 15:49 Narrative: communicated with Dr. Belcher. Probably Wernicke's, poor prognosis, will need longterm. recommended EEG. will order. 09/14/19 15:49
[2019-09-14] MEDS: THIAMINE HCL 100 MG in NORMAL SALINE 50 ML IV SCH (21:05)
[2019-09-15] MEDS: LORazepam 2 MG/ML DISP.SYRIN IV PRN (01:20)
[2019-09-15] MEDS: VANCOMYCIN HCL 50 MG/ML BTL PO SCH ×4 (05:12→22:11)
[2019-09-15 06:38] LABS: Anion Gap 9.4 mmol/L (6.8-13.8); BUN/Creatinine Ratio 2.9 (9.0-21.6); Calcium * 7.9 mg/dL (7.9-10.9); Carbon Dioxide 28.1 mmol/L (24-32.6); Estimated Creat Clear 118.2; Potassium 3.5 mmol/L (3.4-4.6)
[2019-09-15] MEDS: POTASSIUM CHLORIDE 20 MEQ in DEXTROSE 5%-NORMAL SALINE 990 ML IV SCH ×2 (06:56→17:32)
[2019-09-15] MEDS: THIAMINE HCL 100 MG in NORMAL SALINE 50 ML IV SCH ×2 (08:43→22:08)
[2019-09-15] MEDS: MULTIVIT INFUSN ADULT K IV SCH (10:14)
[2019-09-15] MEDS: NORMAL SALINE IV SCH (10:14)
--- NOTE | 2019-09-15 11:37 | PN ---
Subjective - Date and Time Seen Date: 09/15/19 Time: 11:31 Subjective Narrative: . Still restless and confused. Mainly mumbles. Appears to be in no acute distress. Dr. Belcher, neurology, saw him yesterday in consultation and thinks this is Waralfreditocke's. He recommended EEG, which has been done, but there is no interpretation yet. PO nutrition remains an issue. there will be a hand glove cleaner consult this afternoon. I've ordered a feeding tube, but there is an issue because the patient is mentally incompetent to sign for permission, and we have yet to find a family member to sign. Case management is working on the problem at the present time. We will continue in hospital management. Objective - Review of Systems Generalized/Overall Review: Reports: No Symptoms Reported - unable to report symptoms due to mental disarray - Vitals Vitals: Last Vital Signs Temp 36.7 C 09/15/19 07:01 Pulse 80 09/15/19 07:01 Resp 16 09/15/19 07:01 BP 133/88 09/15/19 07:01 Pulse Ox 100 09/15/19 07:01 - Abnormal Lab Findings Abnormal Lab Findings: Abnormal Lab Results 09/15/19 Range/Units 06:20 BUN 2 L (6-23) mg/dL BUN/Creatinine Ratio 2.9 L (9.0-21.6) Random Glucose 128 H (70-110) mg/dL - Exam Exam Narrative: Vitals are stable. Labs are stable. Constitutional: Present: Well developed, Somnolent, Elderly, Looks Older than stated age. Absent: Well nourished ENT Exam: Present: normal ENT inspection Neck: Present: normal inspection, trachea midline. Absent: lymphadenopathy (R), lymphadenopathy (L), thyromegaly Respiratory: Present: lungs clear, no respiratory distress Cardiovascular/Chest: Present: regular rate, rhythm, no edema, no gallop, no JVD, no murmur Abdomen: Present: Normal bowel sounds, soft, nondistended, no hepatospenomegaly, no masses /Rectal: Present: Exam deferred Extremity: Present: non-tender Skin Exam: Present: normal color, no cyanosis, cool/dry, other - bruising forearms Lymphatic: Present: no adenopathy Neurologic: Present: other Appearance: Absent: appropriate appearance, appropriate insight Eye contact: Absent: cooperative, good eye contact, normal speech Thoughts: Absent: normal thought pattern Assessment/Plan - Problems/Diagnosis (1) Encounter for competency evaluation Problem: Acute Narrative: actually, sub acute. patient remains totally mentally incompetent. (2) Altered mental status Problem: Acute Qualifiers: Altered mental status type: disorientation Qualified Code(s): R41.0 - Disorientation, unspecified (3) Clostridium difficile diarrhea Problem: Acute (4) Pancreatitis Problem: Resolved Qualifiers: Chronicity: acute Pancreatitis type: alcohol induced Acute pancreatitis complication: no infection or necrosis Qualified Code(s): K85.20 - Alcohol induced acute pancreatitis without necrosis or infection (5) Weakness Problem: Acute (6) Urinary tract infection Problem: Acute Qualifiers: Urinary tract infection type: site unspecified Hematuria presence: without hematuria Qualified Code(s): N39.0 - Urinary tract infection, site not specified (7) Alcohol abuse Problem: Chronic (8) Malnutrition Problem: Acute Qualifiers: Malnutrition type: protein-calorie malnutrition Protein-calorie malnutrition severity: moderate Qualified Code(s): E44.0 - Moderate protein- calorie malnutrition (9) Macrocytic anemia Problem: Acute (10) Hypokalemia Problem: Resolved (11) Elevated liver enzymes Problem: Acute (12) Hypertension, essential, benign Problem: Chronic
--- NOTE | 2019-09-15 12:13 | PN ---
Sendy Note - Interim Date: 09/15/19 Time: 12:06 Narrative: 09/15/19 12:06 I just had an informal conversation with our general surgeon, Dr. Chacko, as it relates to a PEG tube. The issue of informed consent is on going. Case management will continue to vigorously work at finding family who would be willing to give informed consent. Dr. Chacko said we could use an NG to feed, which wouldn't require informed consent, but that the pt would almost certainly pull that or a feeding tube out. He thinks the patient would probably also pull out a PEG tube, and if in the first week after surgery he does in fact pull it out he would require laparoscopy. He thinks this is acute enough in the illness, he's only been here four days, we should continue to try to get him to take things by mouth. Case management, in discussion with the hospital's legal department, found that we could handle things that need informed consent in the future by having two physicians agree the treatment/procedure needs done. We will therefor continue to try to get him to take po at the present time. He will remain hospitalized. assisted placement is inevitable, and at that point, we may have to make him a knox of the court.
[2019-09-16] MEDS: POTASSIUM CHLORIDE 20 MEQ in DEXTROSE 5%-NORMAL SALINE 990 ML IV SCH ×2 (04:35→15:44)
[2019-09-16] MEDS: VANCOMYCIN HCL 50 MG/ML BTL PO SCH ×4 (05:28→22:22)
[2019-09-16] MEDS: THIAMINE HCL 100 MG in NORMAL SALINE 50 ML IV SCH ×2 (08:39→22:21)
[2019-09-16] MEDS: NORMAL SALINE IV SCH (11:10)
[2019-09-16] MEDS: MULTIVIT INFUSN ADULT K IV SCH (11:10)
--- NOTE | 2019-09-16 11:45 | PN ---
Subjective - Date and Time Seen Date: 09/16/19 Time: 11:40 Subjective Narrative: states he is sleepy. we can have a conversation this morning. taking a little po now. completely disoriented and confused, thinks he is in [place], for example. no diarrhea. Objective - Review of Systems Generalized/Overall Review: Reports: No Symptoms Reported - when asked, entirely negative review of sympltoms except sleepy. totally unreliable historian. - Vitals Vitals: Last Vital Signs Temp 36.5 C 09/16/19 08:54 Pulse 89 09/16/19 08:54 Resp 18 09/16/19 03:00 BP 137/82 09/16/19 08:54 Pulse Ox 99 09/16/19 08:54 - Exam Constitutional: Present: Cooperative, Well developed, No distress, Looks Older than stated age. Absent: Oriented x3, Well nourished ENT Exam: Present: normal ENT inspection, hearing grossly normal Neck: Present: normal inspection. Absent: lymphadenopathy (R), lymphadenopathy (L), thyromegaly Respiratory: Present: lungs clear, no respiratory distress Cardiovascular/Chest: Present: regular rate, rhythm, no edema, no gallop, no JVD, no murmur Abdomen: Present: Normal bowel sounds, soft, nontender, nondistended, no hepatospenomegaly, no masses /Rectal: Present: Exam deferred Extremity: Present: normal inspection, no pedal edema Skin Exam: Present: normal color, warm/dry, no cyanosis, other - bruised forearms Neurologic: Absent: normal mood/affect, oriented x 3 Appearance: Present: appropriate appearance, neat. Absent: appropriate insight Eye contact: Present: cooperative. Absent: good eye contact, normal speech Thoughts: Present: other Assessment/Plan - Problems/Diagnosis (1) Encounter for competency evaluation Problem: Acute (2) Altered mental status Problem: Acute Qualifiers: Altered mental status type: disorientation Qualified Code(s): R41.0 - Disorientation, unspecified Narrative: improved today. time will tell how much. may still require long term. (3) Clostridium difficile diarrhea Problem: Acute Narrative: improved. plan ten full days total of oral vancomycin. (4) Pancreatitis Problem: Resolved Qualifiers: Chronicity: acute Pancreatitis type: alcohol induced Acute pancreatitis complication: no infection or necrosis Qualified Code(s): K85.20 - Alcohol induced acute pancreatitis without necrosis or infection (5) Weakness Problem: Acute (6) Urinary tract infection Problem: Ruled-out Qualifiers: Urinary tract infection type: site unspecified Hematuria presence: without hematuria Qualified Code(s): N39.0 - Urinary tract infection, site not specified (7) Alcohol abuse Problem: Chronic (8) Malnutrition Problem: Acute Qualifiers: Malnutrition type: protein-calorie malnutrition Protein-calorie malnutrition severity: moderate Qualified Code(s): E44.0 - Moderate protein- calorie malnutrition (9) Macrocytic anemia Problem: Acute (10) Hypokalemia Problem: Resolved (11) Elevated liver enzymes Problem: Acute (12) Hypertension, essential, benign Problem: Chronic
[2019-09-16] MEDS: LORAZEPAM 2 MG/ML ORAL.CONC PO PRN (13:52)
[2019-09-16 20:01] LABS: % CDT 1.7 % (<2.5)
[2019-09-17] MEDS: POTASSIUM CHLORIDE 20 MEQ in DEXTROSE 5%-NORMAL SALINE 990 ML IV SCH ×3 (01:50→16:25)
[2019-09-17] MEDS: VANCOMYCIN HCL 50 MG/ML BTL PO SCH ×3 (05:21→17:43)
--- NOTE | 2019-09-17 07:13 | DS ---
(1) Encounter for competency evaluation Problem: Resolved (2) Altered mental status Problem: Acute Qualifiers: Altered mental status type: disorientation Qualified Code(s): R41.0 - Disorientation, unspecified (3) Clostridium difficile diarrhea Problem: Acute (4) Pancreatitis Problem: Resolved Qualifiers: Chronicity: acute Pancreatitis type: alcohol induced Acute pancreatitis complication: no infection or necrosis Qualified Code(s): K85.20 - Alcohol induced acute pancreatitis without necrosis or infection (5) Weakness Problem: Acute (6) Urinary tract infection Problem: Ruled-out Qualifiers: Urinary tract infection type: site unspecified Hematuria presence: without hematuria Qualified Code(s): N39.0 - Urinary tract infection, site not specified (7) Alcohol abuse Problem: Chronic (8) Malnutrition Problem: Acute Qualifiers: Malnutrition type: protein-calorie malnutrition Protein-calorie malnutrition severity: moderate Qualified Code(s): E44.0 - Moderate protein- calorie malnutrition (9) Macrocytic anemia Problem: Acute (10) Hypokalemia Problem: Resolved (11) Elevated liver enzymes Problem: Acute (12) Hypertension, essential, benign Problem: Chronic Hospital Course: Admitted disheveled and confused. Worsened during hospital stay, becoming noncommunicative and aggitated with tremor. Originally thought to have UTI, which culture did not confirm, and was given antibiotics for that briefly. He was an impossible historian, so it was subsequent to admission that a friend told us he had diarrhea for two weeks. This turned out to be C. dif and we started oral vancomycin. Diarrhea improved. The C. dif started prior to hospitalization. Admission labs showed severe malnutrition, stable macrocytic anemia and thrombocytopenia and slightly elevated liver enzymes. Lipase and amylase were elevated, but normalized quickly. CT did not show pancreatitis, but given his alcohol abuse and his elevated lipase, he had mild alcoholic pancreatitis. CT and MRI of the brain were non acute. EEG results are pending. Working diagnosis, primary, has been Wernicke's encephalopathy. Secondary diagnosis delayed DT's. Two days ago Dr. Belcher, neurology, confirmed the diagnosis of Wernicke's. Suprisingly, the patient improved yesterday. Is still very confused and very weak, but is conversant. His daughter arrived from elsewhere yesterday, we discussed his situation, and answered all questions to her satisfaction. She indicated, as he was mentally incompetent to do so, he should be DNR status. Because of the confusion he is unable to live alone, needs 24 hour care, and because of the weakness needs PT/OT. This is the reasoning for penitentiary placement. Prognosis is guarded at best. Procedures Performed: none Results and Findings: Lab Pending Results 09/09/19 14:25: WBC 7.8, RBC 2.92 L, Hgb 10.0 L, Hct 28.7 L, MCV 98.3, MCH 34.2 H, MCHC 34.8, RDW 13.4, Plt Count 82 L, MPV 9.8, Neutrophils % (Manual) 62, Band Neuts % (Manual) 6 H, Lymphocytes % (Manual) 23, Monocytes % (Manual) 8, Eosinophils % (Manual) 1, Neutrophils # (Manual) 4.8, Lymphocytes # (Manual) 1.8, Monocytes # (Manual) 0.6, Eosinophils # (Manual) 0.1, Toxic Granulation 1+, Platelet Estimate Decreased L, RBC Morphology Normal 09/09/19 14:25: Sodium 132, Plasma Sodium 133, Potassium 3.3 L, Chloride 95 L, Carbon Dioxide 26.9, Anion Gap 13.4, BUN 32 H D, Creatinine 1.18, Est GFR (Non- Af Amer) 66 D, BUN/Creatinine Ratio 27.1 H, Random Glucose 134 H, Calcium 8.7, Calcium Adj for Albumin 9.3, Total Bilirubin 0.9, AST 76 H, ALT 79 H, Alkaline Phosphatase 90, Troponin I Less than 0.017, Total Protein 7.2, Albumin 2.9 L, Ethyl Alcohol 3.0 09/09/19 14:25: Lactic Acid, Venous 1.7 09/09/19 14:25: Ammonia Less than 17.0 09/09/19 14:25: Creatine Kinase 24 09/09/19 15:05: Urine Color Brown, Urine Appearance Clear, Urine pH 6.5, Ur Specific [place] 1.020, Urine Protein 30 H, Urine Glucose (UA) Negative, Urine Ketones 5, Urine Blood Negative, Urine Nitrate Positive H, Urine Bilirubin 6 H, Urine Ictotest Negative, Prot Sulfosalicylic Acd 1+, Urine Urobilinogen Normal, Ur Leukocyte Esterase Negative, Urine RBC Trace, Urine WBC Trace, Ur Epithelial Cells 0-5, Urine Bacteria 4+ H, Urine Culture Comments Culture to follow 09/09/19 15:05: Urine Opiates Screen Negative, Barbiturate Screen Negative, Ur Phencyclidine Scrn Negative, Urine Amphetamine Negative, U Benzodiazepines Scrn Negative, Urine Cocaine Screen Negative, Urine Marijuana (THC) Negative 09/10/19 06:25: WBC 7.5, RBC 2.80 L, Hgb 9.6 L, Hct 27.8 L, MCV 99.3, MCH 34.3 H, MCHC 34.5, RDW 13.2, Plt Count 79 L, MPV 10.1, Immature Gran % (Auto) 0.50 H, Immature Gran # (Auto) 0.04 H, Neutrophils % 66.8, Lymphocytes % 20.8, Monocytes % 9.4 H, Eosinophils % 2.0, Basophils % 0.5, Nucleated RBC % 0.1, Neutrophils # 5.0, Lymphocytes # 1.57, Monocytes # 0.7, Eosinophils # 0.2, Absolute Basophils 0.0 09/10/19 06:25: Sodium 134, Plasma Sodium 134, Potassium 3.6, Chloride 101, Carbon Dioxide 26.1, Anion Gap 10.5, BUN 25 H, Creatinine 1.01, Est GFR (Non-Af Amer) 80 D, BUN/Creatinine Ratio 24.8 H, Random Glucose 126 H, Calcium 8.3, Calcium Adj for Albumin 9.3, Total Bilirubin 0.9, AST 69 H, ALT 66, Alkaline Phosphatase 87, Total Protein 6.2, Albumin 2.4 L 09/10/19 06:25: Magnesium 1.9, C-Reactive Prot, Quant 5.4 H, TSH 2.369 09/10/19 06:25: ESR 24 H 09/10/19 06:25: Lyme Disease Interpret TNP 09/11/19 07:54: Sodium 141, Plasma Sodium 141, Potassium 3.2 L, Chloride 106, Carbon Dioxide 26.1, Anion Gap 12.1, BUN 16, Creatinine 0.91, Est GFR (Non-Af Amer) 90, BUN/Creatinine Ratio 17.6, Random Glucose 130 H, Calcium 8.2 09/11/19 07:54: Lyme Disease Interpret Not detected 09/11/19 14:33: Rotavirus Antigen Negative 09/11/19 14:33: Giardia Antigen See note, Giardia Comment Pending 09/11/19 14:33: Stl C.difficile Tox A&B Positive H 09/11/19 14:33: O & P Trichrome Stain See note 09/12/19 06:30: Transferrin 141 L, Carb-defic Transferrin 24.1 L, Carb-defic Transfer % 1.7 09/12/19 06:30: WBC 8.8, RBC 2.43 L, Hgb 8.3 L, Hct 25.2 L, MCV 103.7 H, MCH 34.2 H, MCHC 32.9, RDW 13.8, Plt Count 84 L, MPV 10.0, Immature Gran % (Auto) 2.10 H, Immature Gran # (Auto) 0.18 H, Neutrophils % 59.0, Lymphocytes % 24.4, Monocytes % 11.7 H, Eosinophils % 2.1, Basophils % 0.7, Nucleated RBC % 0.0, Neutrophils # 5.2, Lymphocytes # 2.14, Monocytes # 1.0, Eosinophils # 0.2, Absolute Basophils 0.1 09/12/19 06:30: Sodium 142, Plasma Sodium 142, Potassium 3.2 L, Chloride 110 H, Carbon Dioxide 23.8 L, Anion Gap 11.4, BUN 11, Creatinine 0.81, Est GFR (Non-Af Amer) 103, BUN/Creatinine Ratio 13.6, Random Glucose 126 H, Calcium 8.3, Calcium Adj for Albumin 9.4, Total Bilirubin 0.4, AST 94 H, ALT 81 H, Alkaline Phosphatase 84, Total Protein 5.4 L, Albumin 2.2 L 09/12/19 06:38: Absolute Retic 0.0506, Percent Retic 2.1 H, Immature Retic Fraction 21.4 H, Retic Hgb Content 31.8 09/13/19 06:28: WBC 9.3, RBC 2.38 L, Hgb 8.0 L, Hct 24.6 L, MCV 103.4 H, MCH 33.6 H, MCHC 32.5, RDW 14.5 H, Plt Count 87 L, MPV 10.4, Immature Gran % (Auto) 2.60 H, Immature Gran # (Auto) 0.24 H, Neutrophils % 60.7, Lymphocytes % 23.2, Monocytes % 10.4 H, Eosinophils % 2.5, Basophils % 0.6, Nucleated RBC % 0.0, Neutrophils # 5.7, Lymphocytes # 2.16, Monocytes # 1.0, Eosinophils # 0.2, Absolute Basophils 0.1 09/13/19 06:28: Peripheral Blood Smear Smear sent to path. 09/13/19 06:28: Sodium 138, Plasma Sodium 138, Potassium 3.9 D, Chloride 108 H, Carbon Dioxide 22.8 L, Anion Gap 11.1, BUN 5 L D, Creatinine 0.80, Est GFR (Non- Af Amer) 104, BUN/Creatinine Ratio 6.3 L, Random Glucose 116 H, Calcium 8.5, Calcium Adj for Albumin 9.6, Total Bilirubin 0.4, AST 86 H, ALT 80 H, Alkaline Phosphatase 86, Total Protein 5.7 L, Albumin 2.2 L, Vitamin B12 1963 H 09/13/19 14:15: WBC 10.2, RBC 2.51 L, Hgb 8.5 L, Hct 25.9 L, MCV 103.2 H, MCH 33.9 H, MCHC 32.8, RDW 14.6 H, Plt Count 96 L, MPV 9.9, Immature Gran % (Auto) 2.30 H, Immature Gran # (Auto) 0.24 H, Neutrophils % 64.5, Lymphocytes % 22.4, Monocytes % 7.5, Eosinophils % 2.6, Basophils % 0.7, Nucleated RBC % 0.0, Neutrophils # 6.6 H, Lymphocytes # 2.29, Monocytes # 0.8, Eosinophils # 0.3, Absolute Basophils 0.1 09/13/19 14:15: Sodium 138, Plasma Sodium 138, Potassium 4.0, Chloride 106, Carbon Dioxide 23.9 L, Anion Gap 12.1, BUN 5 L, Creatinine 0.77, Est GFR (Non-Af Amer) 109, BUN/Creatinine Ratio 6.5 L, Random Glucose 106, Calcium 8.5, Calcium Adj for Albumin 9.5, Total Bilirubin 0.4, AST 89 H, ALT 86 H, Alkaline Phosphatase 103, Troponin I Less than 0.017, Total Protein 5.9 L, Albumin 2.3 L, Amylase 143 H, Lipase 958 H 09/13/19 14:15: Troponin I Less than 0.017 09/13/19 16:50: pCO2 24.4 L, pO2 87.2, HCO3 15.8 L, Total CO2 16.6 L, Base Excess -7.4 L, ABG pH 7.43, ABG O2 Sat (Measured) 97.1 09/14/19 06:10: Ammonia Less than 17.0 09/14/19 06:10: WBC 10.1, RBC 2.65 L, Hgb 8.9 L, Hct 26.6 L, MCV 100.4 H, MCH 33.6 H, MCHC 33.5, RDW 14.2 H, Plt Count 97 L, MPV 10.3, Immature Gran % (Auto) 1.30 H, Immature Gran # (Auto) 0.13 H, Neutrophils % 69.1, Lymphocytes % 19.5 L, Monocytes % 7.0, Eosinophils % 2.5, Basophils % 0.6, Nucleated RBC % 0.0, Neutrophils # 7.0 H, Lymphocytes # 1.97, Monocytes # 0.7, Eosinophils # 0.3, Absolute Basophils 0.1 09/14/19 06:10: Sodium 134, Plasma Sodium 134, Potassium 3.8, Chloride 100, Carbon Dioxide 28.3, Anion Gap 9.5, BUN 2 L D, Creatinine 0.76, Est GFR (Non-Af Amer) 110, BUN/Creatinine Ratio 2.6 L, Random Glucose 116 H, Calcium 8.5, Amylase 102, Lipase 508 H 09/15/19 06:20: Sodium 136, Plasma Sodium 136, Potassium 3.5, Chloride 102, Carbon Dioxide 28.1, Anion Gap 9.4, BUN 2 L, Creatinine 0.69, Est GFR (Non-Af Amer) 123, BUN/Creatinine Ratio 2.9 L, Random Glucose 128 H, Calcium 7.9 Discharge Location: [facility] Disposition: Intermediate Care Facility ICF Condition: Poor Discharge Activity: Other - activity with help only Discharge Diet: General/regular food - 3 snacks daily Assisted Therapy: Physical Therapy, Occupation Therapy Consultation Done:: Dr. Belcher, neurology Additional Patient Instructions (free text): DNR Complete Home Medications List: Complete Home Medication List: Fluticasone Propionate [Flonase] 1 spray NS DAILY #1 inhaler 09/17/19 Folic Acid 1 mg PO DAILY #30 tab 09/17/19 Lorazepam [Ativan Intensol] 0.5 mg PO Q1H PRN #20 ml 09/17/19 Losartan Potassium [Cozaar] 100 mg PO DAILY #30 tab 09/17/19 Mvit-Mins/Folic Acid/Soy Isofl [One-A-Day Menopause Formula Tb] 1 ea PO QDIPM #30 tab 09/17/19 Thiamine HCl [Vitamin B-1] 100 mg PO DAILY #30 tab 09/17/19 Vancomycin HCl [Vancomycin] 125 mg PO Q6H #50 ml 09/17/19 Forms: Patient Portal Registration
[2019-09-17] MEDS: THIAMINE HCL 100 MG in NORMAL SALINE 50 ML IV SCH (08:36)
[2019-09-17] MEDS: NORMAL SALINE IV SCH (13:32)
[2019-09-17] MEDS: MULTIVIT INFUSN ADULT K IV SCH (13:32)
[2019-09-18] MEDS: VANCOMYCIN HCL 50 MG/ML BTL PO SCH ×5 (01:42→23:23)
--- NOTE | 2019-09-18 13:36 | PN ---
Subjective - Date and Time Seen Date: 09/18/19 Time: 13:28 Subjective Narrative: I feel okay. Objective Objective Narrative: 63-year-old male admitted for Warnicke encephalopathy, delayed delirium tremens due to alcohol addiction, and seizure was evaluated at bedside and was found to be afebrile and in no acute distress. Patient reports feeling well this morning and was very pleasant. He did not appear agitated as previously reported and was very cooperative. However the patient remains confused and disoriented x2, he knew his full name but did not know where he was and what year we are in. He is noted to have a fine tremor but no neurological deficit motor or sensory was detected. Patient was to be discharged yesterday but discharge was canceled due to issues with insurance and placement in a care facility. He will stay throughout the weekend and possibly will be discharged on Friday - Review of Systems Generalized/Overall Review: Reports: No Symptoms Reported EENTM: Reports: No Symptoms Reported Respiratory: Reports: No Symptoms Reported Cardiac: Reports: No Symptoms Reported Abdominal: Reports: No Symptoms Reported Genitourinary Symptoms: Reports: No Symptoms Reported Musculoskeletal Complaints: Reports: No Symptoms Reported Neurological: Reports: Tremors, Weakness, Pre-existing Deficit, Other - Confusion Skin: Reports: Change in Color - Extensive purpura on upper extremities, Bruising Endocrine: Reports: No Symptoms Reported - Vitals Vitals: Last Vital Signs Temp 37.4 C 09/18/19 10:41 Pulse 75 09/18/19 10:41 Resp 18 09/18/19 10:41 BP 143/76 09/18/19 10:41 Pulse Ox 99 09/18/19 10:41 - Exam Constitutional: Present: Alert, Cooperative, Well developed, No distress, Elderly ENT Exam: Present: normal ENT inspection, hearing grossly normal, pharynx normal Neck: Present: non-tender, full range of motion, supple, normal inspection, trachea midline Breasts: Present: Exam deferred Respiratory: Present: chest non-tender, lungs clear, normal breath sounds, no respiratory distress, no accessory muscle use Cardiovascular/Chest: Present: normal peripheral pulses, regular rate, rhythm, no chest tenderness, no edema, no gallop, no JVD, no murmur, no rub Abdomen: Present: Normal bowel sounds, soft, nontender, nondistended, no rebound tenderness, no hepatospenomegaly, no masses /Rectal: Present: Exam deferred Extremity: Present: normal range of motion, non-tender, normal inspection, no pedal edema, no calf tenderness, normal capillary refill, pelvis stable Skin Exam: Present: other - Purpura on upper extremities Lymphatic: Present: no adenopathy Neurologic: Present: fur plucker II-XII nml as tested, alert, disoriented x 3 Appearance: Present: impaired insight, impaired recent memory, impaired remote memory Eye contact: Present: cooperative, good eye contact, belligerent Thoughts: Present: no apparent hallucination, incoherent Assessment/Plan Plan Narrative: We will monitor the patient throughout the weekend and follow-up with discharge planning for Friday. - Problems/Diagnosis (1) Wernicke encephalopathy Problem: Acute (2) Macrocytic anemia Problem: Acute (3) Encephalopathy Problem: Acute (4) Alcoholic encephalopathy Problem: Acute (5) Altered mental status Problem: Acute Qualifiers: Altered mental status type: disorientation Qualified Code(s): R41.0 - Disorientation, unspecified (6) Malnutrition Problem: Acute Qualifiers: Malnutrition type: protein-calorie malnutrition Protein-calorie malnutrition severity: moderate Qualified Code(s): E44.0 - Moderate protein- calorie malnutrition (7) Weakness Problem: Acute
[2019-09-18] MEDS: LORAZEPAM 2 MG/ML ORAL.CONC PO PRN (20:18)
[2019-09-19] MEDS: VANCOMYCIN HCL 50 MG/ML BTL PO SCH ×4 (05:01→22:58)
--- NOTE | 2019-09-19 12:03 | PN ---
Subjective - Date and Time Seen Date: 09/19/19 Time: 11:57 Subjective Narrative: I fell this morning but I have no pain I feel fine. Objective Objective Narrative: 63-year-old male admitted for Warnicke encephalopathy, delayed delirium tremens due to alcohol addiction, and seizure was evaluated at bedside and was found to be afebrile and in no acute distress. Patient had a fall that occurred in the bathroom this morning, staff discovered him on the bathroom floor laying on his right side however physical exam was negative for any bruising or tenderness. I conducted a bedside evaluation and the patient had fu ll range of motion of his hips and lower extremities and there were no bruising or injuries noted. He was counseled on the importance of cooperating with hospital nursing staff and to use his call light to call for assistance when he needs to get up, he agreed to do so. He denied any new symptoms and is fully awake and presents stable vitals. - Review of Systems Generalized/Overall Review: Reports: No Symptoms Reported EENTM: Reports: No Symptoms Reported Respiratory: Reports: No Symptoms Reported Cardiac: Reports: No Symptoms Reported Abdominal: Reports: No Symptoms Reported Genitourinary Symptoms: Reports: No Symptoms Reported Musculoskeletal Complaints: Reports: No Symptoms Reported Neurological: Reports: Other - Unsteady gait, issues with balance Skin: Reports: No Symptoms Reported Endocrine: Reports: No Symptoms Reported - Vitals Vitals: Last Vital Signs Temp 36.9 C 09/19/19 09:54 Pulse 62 09/19/19 09:54 Resp 16 09/19/19 09:54 BP 130/72 09/19/19 09:54 Pulse Ox 100 09/19/19 09:54 - Exam Constitutional: Present: Alert, Cooperative, Well developed, Well nourished, No distress, Elderly ENT Exam: Present: normal ENT inspection, hearing grossly normal, pharynx normal Neck: Present: non-tender, full range of motion, supple, normal inspection, trachea midline Breasts: Present: Exam deferred Respiratory: Present: chest non-tender, lungs clear, normal breath sounds, no respiratory distress, no accessory muscle use Cardiovascular/Chest: Present: normal peripheral pulses, regular rate, rhythm, no chest tenderness, no edema, no gallop, no JVD, no murmur, no rub Abdomen: Present: Normal bowel sounds, soft, nontender, nondistended, no rebound tenderness, no hepatospenomegaly, no masses /Rectal: Present: Exam deferred Extremity: Present: normal range of motion, non-tender, normal inspection, no pedal edema, no calf tenderness, normal capillary refill, pelvis stable Skin Exam: Present: normal color, warm/dry, no cyanosis Lymphatic: Present: no adenopathy Neurologic: Present: no motor/sensory deficits, alert, normal mood/affect, other - Disoriented x2 Appearance: Present: disheveled, impaired recent memory, impaired remote memory Eye contact: Present: cooperative, good eye contact, belligerent Thoughts: Present: normal thought pattern Assessment/Plan Plan Narrative: We will continue to monitor the patient closely and continue the current treatment plan. - Problems/Diagnosis (1) Wernicke encephalopathy Problem: Acute (2) Macrocytic anemia Problem: Acute (3) Encephalopathy Problem: Acute (4) Alcoholic encephalopathy Problem: Acute (5) Altered mental status Problem: Acute Qualifiers: Altered mental status type: disorientation Qualified Code(s): R41.0 - Disorientation, unspecified (6) Malnutrition Problem: Acute Qualifiers: Malnutrition type: protein-calorie malnutrition Protein-calorie malnutrition severity: moderate Qualified Code(s): E44.0 - Moderate protein- calorie malnutrition (7) Weakness Problem: Acute (8) Fall Problem: Acute Qualifiers: Encounter type: initial encounter Qualified Code(s): W19.XXXA - Unspecified fall, initial encounter
[2019-09-20] MEDS: VANCOMYCIN HCL 50 MG/ML BTL PO SCH ×3 (05:10→16:43)
--- NOTE | 2019-09-20 12:03 | PN ---
Subjective - Date and Time Seen Date: 09/20/19 Time: 11:53 Objective Objective Narrative: 63-year-old male admitted for Wernicke encephalopathy, delirium tremens due to alcohol withdrawal, and seizure was evaluated at bedside and was found to be afebrile and in no acute distress. Patient appears comfortable and is cooperative. He continues to show impaired memory and occasional confusion most likely due to the Wernicke this is not new so we will continue to monitor. He maintains stable vitals and is saturating adequately. Discharged planning is underway in order to secure placement in a care center, once that happens patient will likely be discharged. - Review of Systems Generalized/Overall Review: Reports: No Symptoms Reported EENTM: Reports: No Symptoms Reported Respiratory: Reports: No Symptoms Reported Cardiac: Reports: No Symptoms Reported Abdominal: Reports: No Symptoms Reported Genitourinary Symptoms: Reports: No Symptoms Reported Musculoskeletal Complaints: Reports: No Symptoms Reported Neurological: Reports: Pre-existing Deficit, Other - Confusion and impaired memory Skin: Reports: No Symptoms Reported Endocrine: Reports: No Symptoms Reported - Vitals Vitals: Last Vital Signs Temp 36.4 C 09/20/19 10:28 Pulse 64 09/20/19 10:28 Resp 16 09/20/19 10:28 BP 138/62 09/20/19 10:28 Pulse Ox 100 09/20/19 10:28 - Exam Constitutional: Present: Alert, Cooperative, Well developed, Well nourished, No distress, Elderly ENT Exam: Present: normal ENT inspection, hearing grossly normal, pharynx normal, TMs normal Neck: Present: non-tender, full range of motion, supple, normal inspection, trachea midline Breasts: Present: Exam deferred Respiratory: Present: chest non-tender, lungs clear, normal breath sounds, no respiratory distress, no accessory muscle use Cardiovascular/Chest: Present: normal peripheral pulses, regular rate, rhythm, no chest tenderness, no edema, no gallop, no JVD, no murmur, no rub Abdomen: Present: Normal bowel sounds, soft, nontender, nondistended, no rebound tenderness, no hepatospenomegaly, no masses /Rectal: Present: Exam deferred Extremity: Present: normal range of motion, non-tender, normal inspection, no pedal edema, no calf tenderness, normal capillary refill, pelvis stable Skin Exam: Present: normal color, warm/dry, no cyanosis Lymphatic: Present: no adenopathy Neurologic: Present: disoriented x 3 Appearance: Present: appropriate appearance, neat, impaired recent memory, impaired remote memory Eye contact: Present: cooperative, good eye contact, belligerent Thoughts: Present: normal thought pattern Assessment/Plan Plan Narrative: We will continue current treatment, no changes necessary. - Problems/Diagnosis (1) Wernicke encephalopathy Problem: Acute (2) Macrocytic anemia Problem: Acute (3) Encephalopathy Problem: Acute (4) Alcoholic encephalopathy Problem: Acute (5) Altered mental status Problem: Acute Qualifiers: Altered mental status type: disorientation Qualified Code(s): R41.0 - Disorientation, unspecified (6) Malnutrition Problem: Chronic Qualifiers: Malnutrition type: protein-calorie malnutrition Protein-calorie malnutrition severity: moderate Qualified Code(s): E44.0 - Moderate protein- calorie malnutrition (7) Weakness Problem: Acute (8) Fall Problem: Acute Qualifiers: Encounter type: initial encounter Qualified Code(s): W19.XXXA - Unspecified fall, initial encounter
[2019-09-21] MEDS: VANCOMYCIN HCL 50 MG/ML BTL PO SCH ×5 (00:08→22:18)
--- NOTE | 2019-09-21 11:58 | PN ---
Subjective - Date and Time Seen Date: 09/21/19 Time: 11:54 Subjective Narrative: I feel fine no new changes. Objective Objective Narrative: 63-year-old male admitted for Wernicke encephalopathy, delirium tremens due to alcohol withdrawal, and seizure was evaluated at bedside and was found to be afebrile and in no acute distress. Patient appears comfortable and is cooperative. Patient's condition is unchanged, there is nothing new to report. Placement in a care facility is still being organized. We will discharge him once we get a bed at a center. - Review of Systems Generalized/Overall Review: Reports: No Symptoms Reported EENTM: Reports: No Symptoms Reported Respiratory: Reports: No Symptoms Reported Cardiac: Reports: No Symptoms Reported Abdominal: Reports: No Symptoms Reported Genitourinary Symptoms: Reports: No Symptoms Reported Musculoskeletal Complaints: Reports: No Symptoms Reported Neurological: Reports: Pre-existing Deficit Skin: Reports: No Symptoms Reported Endocrine: Reports: No Symptoms Reported - Vitals Vitals: Last Vital Signs Temp 36.4 C 09/21/19 10:48 Pulse 60 09/21/19 10:48 Resp 16 09/21/19 10:48 BP 115/58 09/21/19 10:48 Pulse Ox 99 09/21/19 10:48 - Exam Constitutional: Present: Alert, Cooperative, Well developed, Well nourished, No distress, Elderly ENT Exam: Present: normal ENT inspection, hearing grossly normal, pharynx normal, TMs normal Neck: Present: non-tender, full range of motion, supple, normal inspection, trachea midline Breasts: Present: Exam deferred Respiratory: Present: chest non-tender Cardiovascular/Chest: Present: normal peripheral pulses, regular rate, rhythm, no chest tenderness, no edema, no gallop, no JVD, no murmur, no rub Abdomen: Present: Normal bowel sounds, soft, nontender, nondistended, no rebound tenderness, no hepatospenomegaly, no masses /Rectal: Present: Exam deferred Extremity: Present: normal range of motion, non-tender, normal inspection, no pedal edema, no calf tenderness, normal capillary refill, pelvis stable Skin Exam: Present: normal color, warm/dry, no cyanosis Lymphatic: Present: no adenopathy Neurologic: Present: eligibility supervisor II-XII nml as tested, no motor/sensory deficits, alert, normal mood/affect, disoriented x 3 Appearance: Present: impaired insight, impaired recent memory, impaired remote memory Eye contact: Present: cooperative, good eye contact, belligerent Thoughts: Present: no apparent hallucination Assessment/Plan Plan Narrative: We will wait for placement at a care center to discharge patient. Fall precautions were put in place due to a recurrent fall that occurred yesterday afternoon, there were no apparent injuries. We will continue to monitor her closely. - Problems/Diagnosis (1) Wernicke encephalopathy Problem: Acute (2) Macrocytic anemia Problem: Acute (3) Encephalopathy Problem: Acute (4) Alcoholic encephalopathy Problem: Acute (5) Altered mental status Problem: Acute Qualifiers: Altered mental status type: disorientation Qualified Code(s): R41.0 - Disorientation, unspecified (6) Malnutrition Problem: Chronic Qualifiers: Malnutrition type: protein-calorie malnutrition Protein-calorie malnutrition severity: moderate Qualified Code(s): E44.0 - Moderate protein- calorie malnutrition (7) Weakness Problem: Acute (8) Fall Problem: Acute Qualifiers: Encounter type: initial encounter Qualified Code(s): W19.XXXA - Unspecified fall, initial encounter
[2019-09-22] MEDS: VANCOMYCIN HCL 50 MG/ML BTL PO SCH ×4 (04:27→22:30)
--- NOTE | 2019-09-22 09:30 | PN ---
Subjective - Date and Time Seen Date: 09/22/19 Time: 09:24 Subjective Narrative: No complaints. Objective Objective Narrative: 63-year-old male admitted for Wernicke encephalopathy, delirium tremens due to alcohol withdrawal, and seizure was evaluated at bedside and was found to be afebrile and in no acute distress. Patient appears comfortable but appears to be disoriented and forgetful, this morning he cannot remember the name of the facility where he is currently at nor the year but this is not new for the patient. Therefore I would say that he is mental status is unchanged. However he is completely alert and pleasant at the moment and no new falls have been reported. We will continue to work on discharge planning to a facility. - Review of Systems Generalized/Overall Review: Reports: No Symptoms Reported EENTM: Reports: No Symptoms Reported Respiratory: Reports: No Symptoms Reported Cardiac: Reports: No Symptoms Reported Abdominal: Reports: No Symptoms Reported Genitourinary Symptoms: Reports: No Symptoms Reported Musculoskeletal Complaints: Reports: No Symptoms Reported Neurological: Reports: Pre-existing Deficit, Other - Confusion Skin: Reports: No Symptoms Reported Endocrine: Reports: No Symptoms Reported - Vitals Vitals: Last Vital Signs Temp 37.1 C 09/22/19 07:24 Pulse 53 L 09/22/19 07:24 Resp 18 09/22/19 07:24 BP 136/64 09/22/19 07:24 Pulse Ox 98 09/22/19 07:24 - Exam Constitutional: Present: Alert, Cooperative, Well developed, Well nourished, No distress, Elderly ENT Exam: Present: normal ENT inspection, hearing grossly normal Neck: Present: non-tender, full range of motion, supple, normal inspection, trachea midline Breasts: Present: Exam deferred Respiratory: Present: chest non-tender, lungs clear, normal breath sounds, no respiratory distress, no accessory muscle use Cardiovascular/Chest: Present: normal peripheral pulses, regular rate, rhythm, no chest tenderness, no edema, no gallop, no JVD, no murmur, no rub Abdomen: Present: Normal bowel sounds, soft, nontender, nondistended, no rebound tenderness, no hepatospenomegaly, no masses /Rectal: Present: Exam deferred Extremity: Present: normal range of motion, non-tender, normal inspection, no pedal edema, no calf tenderness, normal capillary refill Skin Exam: Present: normal color, no cyanosis, other - Purpura and bruising on upper extremities Lymphatic: Present: no adenopathy Neurologic: Present: floral associate II-XII nml as tested, no motor/sensory deficits, alert, normal mood/affect, disoriented x 3 Appearance: Present: disheveled, impaired insight, impaired recent memory, impaired remote memory Eye contact: Present: cooperative, good eye contact, normal speech Thoughts: Present: normal thought pattern, no apparent hallucination Assessment/Plan Plan Narrative: No changes will be made to the patient's treatments, will continue to work on discharge planning and discharge him once we have an available bed at a care center. - Problems/Diagnosis (1) Wernicke encephalopathy Problem: Acute (2) Macrocytic anemia Problem: Acute (3) Encephalopathy Problem: Acute (4) Alcoholic encephalopathy Problem: Acute (5) Altered mental status Problem: Acute Qualifiers: Altered mental status type: disorientation Qualified Code(s): R41.0 - Disorientation, unspecified (6) Malnutrition Problem: Chronic Qualifiers: Malnutrition type: protein-calorie malnutrition Protein-calorie malnutrition severity: moderate Qualified Code(s): E44.0 - Moderate protein- calorie malnutrition (7) Weakness Problem: Acute (8) Fall Problem: Acute Qualifiers: Encounter type: initial encounter Qualified Code(s): W19.XXXA - Unspecified fall, initial encounter
[2019-09-23] MEDS: VANCOMYCIN HCL 50 MG/ML BTL PO SCH (05:04)
--- NOTE | 2019-09-23 08:49 | PN ---
Subjective - Date and Time Seen Date: 09/23/19 Time: 08:44 Subjective Narrative: Nothing new. Objective Objective Narrative: 63-year-old male admitted for Wernicke encephalopathy, delirium tremens due to alcohol withdrawal, Severe protein malnutrition, and seizure was evaluated at bedside and was found to be afebrile and in no acute distress. Patient appears comfortable and in his usual clinical state. Nothing new reported. - Review of Systems Generalized/Overall Review: Reports: No Symptoms Reported EENTM: Reports: No Symptoms Reported Respiratory: Reports: No Symptoms Reported Cardiac: Reports: No Symptoms Reported Abdominal: Reports: No Symptoms Reported Genitourinary Symptoms: Reports: No Symptoms Reported Musculoskeletal Complaints: Reports: No Symptoms Reported Neurological: Reports: Pre-existing Deficit Skin: Reports: No Symptoms Reported Endocrine: Reports: No Symptoms Reported - Vitals Vitals: Last Vital Signs Temp 36.8 C 09/23/19 03:12 Pulse 58 L 09/23/19 03:12 Resp 16 09/23/19 03:12 BP 145/58 09/23/19 03:12 Pulse Ox 98 09/23/19 03:12 - Exam Constitutional: Present: Alert, Cooperative, Well developed, Well nourished, No distress, Elderly ENT Exam: Present: normal ENT inspection, hearing grossly normal, pharynx normal, TMs normal Neck: Present: non-tender, full range of motion, supple, normal inspection, trachea midline Breasts: Present: Exam deferred, Nontender Respiratory: Present: chest non-tender, lungs clear, normal breath sounds, no respiratory distress, no accessory muscle use Cardiovascular/Chest: Present: normal peripheral pulses, regular rate, rhythm, no chest tenderness, no edema, no gallop, no JVD, no murmur, no rub Abdomen: Present: Normal bowel sounds, soft, nontender, nondistended, no rebound tenderness, no hepatospenomegaly, no masses /Rectal: Present: Exam deferred Extremity: Present: normal range of motion, non-tender, normal inspection, no pedal edema, no calf tenderness, normal capillary refill, pelvis stable Skin Exam: Present: normal color, warm/dry, no cyanosis Lymphatic: Present: no adenopathy Neurologic: Present: rug designer II-XII nml as tested, no motor/sensory deficits, alert, normal mood/affect, disoriented x 3 Appearance: Present: impaired insight, impaired recent memory, impaired remote memory Eye contact: Present: cooperative, good eye contact, belligerent Thoughts: Present: no apparent hallucination Assessment/Plan Plan Narrative: Patient has significant deconditioning, issues with balance, and problems with gait and will need extensive physical therapy in order to avoid recurrent falls therefore new orders for his physical and occupational therapy added. - Problems/Diagnosis (1) Wernicke encephalopathy Problem: Acute (2) Macrocytic anemia Problem: Acute (3) Encephalopathy Problem: Acute (4) Alcoholic encephalopathy Problem: Acute (5) Altered mental status Problem: Acute Qualifiers: Altered mental status type: disorientation Qualified Code(s): R41.0 - Disorientation, unspecified (6) Weakness Problem: Acute (7) Fall Problem: Acute Qualifiers: Encounter type: initial encounter Qualified Code(s): W19.XXXA - Unspecified fall, initial encounter (8) Severe protein-calorie malnutrition Problem: Chronic (9) Balance problem Problem: Acute
[2019-09-23] MEDS: LORAZEPAM 2 MG/ML ORAL.CONC PO PRN (11:59)
--- NOTE | 2019-09-24 08:51 | PN ---
Subjective - Date and Time Seen Date: 09/24/19 Subjective Narrative: I feel fine, no new symptoms. Objective Objective Narrative: 63-year-old male admitted for Wernicke encephalopathy, delirium tremens due to alcohol withdrawal, Severe protein malnutrition, and seizure was evaluated at bedside and was found to be afebrile and in no acute distress. Patient appears comfortable and in his usual clinical state. Yesterday afternoon he had a session of physical therapy which he tolerated without any issues, however the physical therapist reported significant issues with balance indicating a high fall risk. She also reported that the patient will need ongoing OT to work on activities of daily living. Patient is cooperative and in a good mood however he still speaks in nonsensical speech and does not recall where he is and what year when, I suspect this is caused by his Warnicke and extensive years of alcohol consumption. He does not show any other neurological deficits. - Review of Systems Generalized/Overall Review: Reports: No Symptoms Reported EENTM: Reports: No Symptoms Reported Respiratory: Reports: No Symptoms Reported Cardiac: Reports: No Symptoms Reported Abdominal: Reports: No Symptoms Reported Genitourinary Symptoms: Reports: No Symptoms Reported Musculoskeletal Complaints: Reports: No Symptoms Reported Neurological: Reports: Pre-existing Deficit, Other - Poor balance Skin: Reports: No Symptoms Reported Endocrine: Reports: No Symptoms Reported - Vitals Vitals: Last Vital Signs Temp 36.7 C 09/23/19 22:22 Pulse 60 09/24/19 08:36 Resp 18 09/24/19 08:36 BP 140/83 09/24/19 08:36 Pulse Ox 97 09/24/19 08:36 - Exam Constitutional: Present: Alert, Cooperative, Well developed, No distress, Elderly ENT Exam: Present: normal ENT inspection, hearing grossly normal Neck: Present: non-tender, full range of motion, supple, normal inspection, trachea midline Breasts: Present: Exam deferred Respiratory: Present: chest non-tender, lungs clear, normal breath sounds, no respiratory distress, no accessory muscle use Cardiovascular/Chest: Present: normal peripheral pulses, regular rate, rhythm, no chest tenderness, no edema, no gallop, no JVD, no murmur, no rub Abdomen: Present: Normal bowel sounds, soft, nontender, nondistended, no rebound tenderness, no hepatospenomegaly, no masses /Rectal: Present: Exam deferred Extremity: Present: normal range of motion, non-tender, normal inspection, no pedal edema, no calf tenderness, normal capillary refill, pelvis stable Skin Exam: Present: normal color, warm/dry, no cyanosis Lymphatic: Present: no adenopathy 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 The plan so far is to discharge the patient to a care center where he can receive ongoing PT and OT to address his deficiencies. No new changes were necessary. - Problems/Diagnosis (1) Wernicke encephalopathy Problem: Acute (2) Macrocytic anemia Problem: Acute (3) Encephalopathy Problem: Acute (4) Alcoholic encephalopathy Problem: Acute (5) Altered mental status Problem: Acute Qualifiers: Altered mental status type: disorientation Qualified Code(s): R41.0 - Disorientation, unspecified (6) Weakness Problem: Acute (7) Fall Problem: Acute Qualifiers: Encounter type: initial encounter Qualified Code(s): W19.XXXA - Unspecified fall, initial encounter (8) Severe protein-calorie malnutrition Problem: Chronic (9) Balance problem Problem: Chronic
[2019-09-24] MEDS: LORAZEPAM 2 MG/ML ORAL.CONC PO PRN (17:09)
[2019-09-25] MEDS: LORAZEPAM 2 MG/ML ORAL.CONC PO PRN ×2 (07:46→14:56)
--- NOTE | 2019-09-25 23:46 | PN ---
Subjective - Date and Time Seen Date: 09/25/19 Time: 09:35 Subjective Narrative: Rad has no concerns. He reports doing well. He does appear confused and talks about the people in the apartment down the [address]. No fever, chills, nausea, or vomiting. Objective - Vitals Vitals: Last Vital Signs Temp 36.5 C 09/25/19 18:09 Pulse 77 09/25/19 18:09 Resp 20 09/25/19 18:09 BP 159/71 H 09/25/19 18:09 Pulse Ox 100 09/25/19 18:09 - Exam Constitutional: Present: Alert, Cooperative. Absent: Oriented x3 ENT Exam: Present: hearing grossly normal Respiratory: Present: lungs clear, normal breath sounds, no respiratory distress Cardiovascular/Chest: Present: regular rate, rhythm. Absent: edema Abdomen: Present: Normal bowel sounds, soft, nontender, nondistended Neurologic: Absent: oriented x 3 Eye contact: Present: cooperative, normal speech Assessment/Plan Plan Narrative: No changes made today. Overall appears to be stable. 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 He appears very pleasant. - Problems/Diagnosis (1) Wernicke encephalopathy Problem: Acute (2) Macrocytic anemia Problem: Acute (3) Encephalopathy Problem: Acute (4) Alcoholic encephalopathy Problem: Acute (5) Altered mental status Problem: Acute Qualifiers: Altered mental status type: disorientation Qualified Code(s): R41.0 - Disorientation, unspecified (6) Weakness Problem: Acute (7) Fall Problem: Acute Qualifiers: Encounter type: initial encounter Qualified Code(s): W19.XXXA - Unspecified fall, initial encounter (8) Severe protein-calorie malnutrition Problem: Chronic (9) Balance problem Problem: Chronic - Problems/Diagnosis (1) Altered mental status Problem: Acute Qualifiers: Altered mental status type: disorientation Qualified Code(s): R41.0 - Disorientation, unspecified (2) Weakness Problem: Acute (3) Wernicke encephalopathy Problem: Acute (4) Severe protein-calorie malnutrition Problem: Chronic (5) Urinary tract infection Problem: Ruled-out Qualifiers: Urinary tract infection type: site unspecified Hematuria presence: without hematuria Qualified Code(s): N39.0 - Urinary tract infection, site not specified
--- NOTE | 2019-09-26 23:18 | PN ---
Subjective - Date and Time Seen Date: 09/26/19 Time: 11:45 Subjective Narrative: Rad remains confused today. He believes I am his son and we are living in apartments. He has no concerns. Denies fever, chills, nausea, and vomiting. He thanks me for visiting. Objective - Vitals Vitals: Last Vital Signs Temp 37.3 C 09/26/19 21:00 Pulse 70 09/26/19 21:00 Resp 16 09/26/19 21:00 BP 155/68 H 09/26/19 21:00 Pulse Ox 98 09/26/19 21:00 - Exam Constitutional: Present: Alert, Cooperative. Absent: Oriented x3 ENT Exam: Present: hearing grossly normal Respiratory: Present: lungs clear, normal breath sounds Cardiovascular/Chest: Present: regular rate, rhythm, no murmur Abdomen: Present: Normal bowel sounds, soft, nontender, nondistended Skin Exam: Present: normal color, warm/dry, no cyanosis Assessment/Plan Plan Narrative: No changes in condition. He remains confused. Case management to continue placement as he is not safe for home discharge. He is very pleasantly confused. - Problems/Diagnosis (1) Altered mental status Problem: Acute Qualifiers: Altered mental status type: disorientation Qualified Code(s): R41.0 - Disorientation, unspecified (2) Weakness Problem: Acute (3) Wernicke encephalopathy Problem: Acute (4) Severe protein-calorie malnutrition Problem: Chronic (5) Urinary tract infection Problem: Ruled-out Qualifiers: Urinary tract infection type: site unspecified Hematuria presence: without hematuria Qualified Code(s): N39.0 - Urinary tract infection, site not specified
[2019-09-27 06:39] LABS: Hematocrit 28.8 % (42.0-52.0); Hemoglobin 9.4 gm/dL (13.5-18.0); Mean Cell Volume 101.4 fl (78-100); Mean Corpuscular Hemoglobin 33.1 pg (27-31); Mean Corpuscular Hgb Conc 32.6 g/dl (32-36); Mean Platelet Volume 9.3 fl (8-11.3); Neutrophil # 7.8 K/mm3 (1.3-6.0); Neutrophil % 66.2 % (42-75.0); Platelet Count 244 K/mm3 (150-450); Red Blood Count 2.84 M/mm3 (4.7-6.0); Red Cell Distribution Width 14.4 % (11.5-14.0); White Blood Count 11.7 K/mm3 (4.0-10.5)
[2019-09-27 06:53] LABS: Albumin * 2.4 gm/dl (3.4-5.0); Anion Gap 9.7 mmol/L (6.8-13.8); Bilirubin, Total 0.4 mg/dL (0.0-1.1); Ca. Corrected For Albumin 9.6 mg/dL (8.4-10.2); Calcium * 8.6 mg/dL (7.9-10.9); Carbon Dioxide 28.9 mmol/L (24-32.6); Potassium 3.6 mmol/L (3.4-4.6); Total Protein 6.4 gm/dL (6.2-8.2)
--- NOTE | 2019-09-27 11:00 | DS ---
(1) Encounter for competency evaluation Problem: Resolved (2) Altered mental status Problem: Acute Qualifiers: Altered mental status type: disorientation Qualified Code(s): R41.0 - Disorientation, unspecified (3) Clostridium difficile diarrhea Problem: Acute (4) Pancreatitis Problem: Resolved Qualifiers: Chronicity: acute Pancreatitis type: alcohol induced Acute pancreatitis complication: no infection or necrosis Qualified Code(s): K85.20 - Alcohol induced acute pancreatitis without necrosis or infection (5) Weakness Problem: Acute (6) Urinary tract infection Problem: Ruled-out Qualifiers: Urinary tract infection type: site unspecified Hematuria presence: without hematuria Qualified Code(s): N39.0 - Urinary tract infection, site not specified (7) Alcohol abuse Problem: Chronic (8) Malnutrition Problem: Deleted Qualifiers: Malnutrition type: protein-calorie malnutrition Protein-calorie malnutrition severity: moderate Qualified Code(s): E44.0 - Moderate protein- calorie malnutrition (9) Macrocytic anemia Problem: Acute (10) Hypokalemia Problem: Resolved (11) Elevated liver enzymes Problem: Acute (12) Hypertension, essential, benign Problem: Chronic Hospital Course: Admitted disheveled and confused. Worsened during hospital stay, becoming noncommunicative and aggitated with tremor. Originally thought to have UTI, which culture did not confirm, and was given antibiotics for that briefly. He was an impossible historian, so it was subsequent to admission that a friend told us he had diarrhea for two weeks. This turned out to be C. dif and we started oral vancomycin. Diarrhea improved. The C. dif started prior to hospitalization. Admission labs showed severe malnutrition, stable macrocytic anemia and thrombocytopenia and slightly elevated liver enzymes. Lipase and amylase were elevated, but normalized quickly. CT did not show pancreatitis, but given his alcohol abuse and his elevated lipase, he had mild alcoholic pancreatitis. CT and MRI of the brain were non acute. EEG results are pending. Working diagnosis, primary, has been Wernicke's encephalopathy. Secondary diagnosis delayed DT's. Dr. Belcher, neurology, confirmed the diagnosis of Wernicke's. Is still very confused and very weak, but is conversant. Because of the confusion he is unable to live alone, needs 24 hour care, and b ecause of the weakness needs PT/OT. This is the reasoning for longterm placement. Prognosis is guarded at best. Discharge has been delayed because of placement difficulties. Procedures Performed: none Results and Findings: Lab Pending Results 09/09/19 14:25: WBC 7.8, RBC 2.92 L, Hgb 10.0 L, Hct 28.7 L, MCV 98.3, MCH 34.2 H, MCHC 34.8, RDW 13.4, Plt Count 82 L, MPV 9.8, Neutrophils % (Manual) 62, Band Neuts % (Manual) 6 H, Lymphocytes % (Manual) 23, Monocytes % (Manual) 8, Eosinophils % (Manual) 1, Neutrophils # (Manual) 4.8, Lymphocytes # (Manual) 1.8, Monocytes # (Manual) 0.6, Eosinophils # (Manual) 0.1, Toxic Granulation 1+, Platelet Estimate Decreased L, RBC Morphology Normal 09/09/19 14:25: Sodium 132, Plasma Sodium 133, Potassium 3.3 L, Chloride 95 L, Carbon Dioxide 26.9, Anion Gap 13.4, BUN 32 H D, Creatinine 1.18, Est GFR (Non- Af Amer) 66 D, BUN/Creatinine Ratio 27.1 H, Random Glucose 134 H, Calcium 8.7, Calcium Adj for Albumin 9.3, Total Bilirubin 0.9, AST 76 H, ALT 79 H, Alkaline Phosphatase 90, Troponin I Less than 0.017, Total Protein 7.2, Albumin 2.9 L, Ethyl Alcohol 3.0 09/09/19 14:25: Lactic Acid, Venous 1.7 09/09/19 14:25: Ammonia Less than 17.0 09/09/19 14:25: Creatine Kinase 24 09/09/19 15:05: Urine Color Brown, Urine Appearance Clear, Urine pH 6.5, Ur Specific [place] 1.020, Urine Protein 30 H, Urine Glucose (UA) Negative, Urine Ketones 5, Urine Blood Negative, Urine Nitrate Positive H, Urine Bilirubin 6 H, Urine Ictotest Negative, Prot Sulfosalicylic Acd 1+, Urine Urobilinogen Normal, Ur Leukocyte Esterase Negative, Urine RBC Trace, Urine WBC Trace, Ur Epithelial Cells 0-5, Urine Bacteria 4+ H, Urine Culture Comments Culture to follow 09/09/19 15:05: Urine Opiates Screen Negative, Barbiturate Screen Negative, Ur Phencyclidine Scrn Negative, Urine Amphetamine Negative, U Benzodiazepines Scrn Negative, Urine Cocaine Screen Negative, Urine Marijuana (THC) Negative 09/10/19 06:25: WBC 7.5, RBC 2.80 L, Hgb 9.6 L, Hct 27.8 L, MCV 99.3, MCH 34.3 H, MCHC 34.5, RDW 13.2, Plt Count 79 L, MPV 10.1, Immature Gran % (Auto) 0.50 H, Immature Gran # (Auto) 0.04 H, Neutrophils % 66.8, Lymphocytes % 20.8, Monocytes % 9.4 H, Eosinophils % 2.0, Basophils % 0.5, Nucleated RBC % 0.1, Neutrophils # 5.0, Lymphocytes # 1.57, Monocytes # 0.7, Eosinophils # 0.2, Absolute Basophils 0.0 09/10/19 06:25: Sodium 134, Plasma Sodium 134, Potassium 3.6, Chloride 101, Carbon Dioxide 26.1, Anion Gap 10.5, BUN 25 H, Creatinine 1.01, Est GFR (Non-Af Amer) 80 D, BUN/Creatinine Ratio 24.8 H, Random Glucose 126 H, Calcium 8.3, Calcium Adj for Albumin 9.3, Total Bilirubin 0.9, AST 69 H, ALT 66, Alkaline Phosphatase 87, Total Protein 6.2, Albumin 2.4 L 09/10/19 06:25: Magnesium 1.9, C-Reactive Prot, Quant 5.4 H, TSH 2.369 09/10/19 06:25: ESR 24 H 09/10/19 06:25: Lyme Disease Interpret TNP 09/11/19 07:54: Sodium 141, Plasma Sodium 141, Potassium 3.2 L, Chloride 106, Carbon Dioxide 26.1, Anion Gap 12.1, BUN 16, Creatinine 0.91, Est GFR (Non-Af Amer) 90, BUN/Creatinine Ratio 17.6, Random Glucose 130 H, Calcium 8.2 09/11/19 07:54: Lyme Disease Interpret Not detected 09/11/19 14:33: Rotavirus Antigen Negative 09/11/19 14:33: Stool Anisotropic Fat Normal 09/11/19 14:33: Giardia Antigen See note, Giardia Comment Stool 09/11/19 14:33: Stl C.difficile Tox A&B Positive H 09/11/19 14:33: O & P Trichrome Stain See note 09/12/19 06:30: Transferrin 141 L, Carb-defic Transferrin 24.1 L, Carb-defic Transfer % 1.7 09/12/19 06:30: WBC 8.8, RBC 2.43 L, Hgb 8.3 L, Hct 25.2 L, MCV 103.7 H, MCH 34.2 H, MCHC 32.9, RDW 13.8, Plt Count 84 L, MPV 10.0, Immature Gran % (Auto) 2.10 H, Immature Gran # (Auto) 0.18 H, Neutrophils % 59.0, Lymphocytes % 24.4, Monocytes % 11.7 H, Eosinophils % 2.1, Basophils % 0.7, Nucleated RBC % 0.0, Neutrophils # 5.2, Lymphocytes # 2.14, Monocytes # 1.0, Eosinophils # 0.2, Absolute Basophils 0.1 09/12/19 06:30: Sodium 142, Plasma Sodium 142, Potassium 3.2 L, Chloride 110 H, Carbon Dioxide 23.8 L, Anion Gap 11.4, BUN 11, Creatinine 0.81, Est GFR (Non-Af Amer) 103, BUN/Creatinine Ratio 13.6, Random Glucose 126 H, Calcium 8.3, Calcium Adj for Albumin 9.4, Total Bilirubin 0.4, AST 94 H, ALT 81 H, Alkaline Phosphatase 84, Total Protein 5.4 L, Albumin 2.2 L 09/12/19 06:38: Absolute Retic 0.0506, Percent Retic 2.1 H, Immature Retic Fraction 21.4 H, Retic Hgb Content 31.8 09/13/19 06:28: WBC 9.3, RBC 2.38 L, Hgb 8.0 L, Hct 24.6 L, MCV 103.4 H, MCH 33.6 H, MCHC 32.5, RDW 14.5 H, Plt Count 87 L, MPV 10.4, Immature Gran % (Auto) 2.60 H, Immature Gran # (Auto) 0.24 H, Neutrophils % 60.7, Lymphocytes % 23.2, Monocytes % 10.4 H, Eosinophils % 2.5, Basophils % 0.6, Nucleated RBC % 0.0, Neutrophils # 5.7, Lymphocytes # 2.16, Monocytes # 1.0, Eosinophils # 0.2, Absolute Basophils 0.1 09/13/19 06:28: Peripheral Blood Smear Smear sent to path. 09/13/19 06:28: Sodium 138, Plasma Sodium 138, Potassium 3.9 D, Chloride 108 H, Carbon Dioxide 22.8 L, Anion Gap 11.1, BUN 5 L D, Creatinine 0.80, Est GFR (Non- Af Amer) 104, BUN/Creatinine Ratio 6.3 L, Random Glucose 116 H, Calcium 8.5, Calcium Adj for Albumin 9.6, Total Bilirubin 0.4, AST 86 H, ALT 80 H, Alkaline Phosphatase 86, Total Protein 5.7 L, Albumin 2.2 L, Vitamin B12 1963 H 09/13/19 14:15: WBC 10.2, RBC 2.51 L, Hgb 8.5 L, Hct 25.9 L, MCV 103.2 H, MCH 33.9 H, MCHC 32.8, RDW 14.6 H, Plt Count 96 L, MPV 9.9, Immature Gran % (Auto) 2.30 H, Immature Gran # (Auto) 0.24 H, Neutrophils % 64.5, Lymphocytes % 22.4, Monocytes % 7.5, Eosinophils % 2.6, Basophils % 0.7, Nucleated RBC % 0.0, Neutrophils # 6.6 H, Lymphocytes # 2.29, Monocytes # 0.8, Eosinophils # 0.3, Absolute Basophils 0.1 09/13/19 14:15: Sodium 138, Plasma Sodium 138, Potassium 4.0, Chloride 106, Carbon Dioxide 23.9 L, Anion Gap 12.1, BUN 5 L, Creatinine 0.77, Est GFR (Non-Af Amer) 109, BUN/Creatinine Ratio 6.5 L, Random Glucose 106, Calcium 8.5, Calcium Adj for Albumin 9.5, Total Bilirubin 0.4, AST 89 H, ALT 86 H, Alkaline Phosphatase 103, Troponin I Less than 0.017, Total Protein 5.9 L, Albumin 2.3 L, Amylase 143 H, Lipase 958 H 09/13/19 14:15: Troponin I Less than 0.017 09/13/19 16:50: pCO2 24.4 L, pO2 87.2, HCO3 15.8 L, Total CO2 16.6 L, Base Excess -7.4 L, ABG pH 7.43, ABG O2 Sat (Measured) 97.1 09/14/19 06:10: Ammonia Less than 17.0 09/14/19 06:10: WBC 10.1, RBC 2.65 L, Hgb 8.9 L, Hct 26.6 L, MCV 100.4 H, MCH 33.6 H, MCHC 33.5, RDW 14.2 H, Plt Count 97 L, MPV 10.3, Immature Gran % (Auto) 1.30 H, Immature Gran # (Auto) 0.13 H, Neutrophils % 69.1, Lymphocytes % 19.5 L, Monocytes % 7.0, Eosinophils % 2.5, Basophils % 0.6, Nucleated RBC % 0.0, Neutrophils # 7.0 H, Lymphocytes # 1.97, Monocytes # 0.7, Eosinophils # 0.3, Absolute Basophils 0.1 09/14/19 06:10: Sodium 134, Plasma Sodium 134, Potassium 3.8, Chloride 100, Carbon Dioxide 28.3, Anion Gap 9.5, BUN 2 L D, Creatinine 0.76, Est GFR (Non-Af Amer) 110, BUN/Creatinine Ratio 2.6 L, Random Glucose 116 H, Calcium 8.5, Amylase 102, Lipase 508 H 09/15/19 06:20: Sodium 136, Plasma Sodium 136, Potassium 3.5, Chloride 102, Carbon Dioxide 28.1, Anion Gap 9.4, BUN 2 L, Creatinine 0.69, Est GFR (Non-Af Amer) 123, BUN/Creatinine Ratio 2.9 L, Random Glucose 128 H, Calcium 7.9 09/22/19 10:26: SARS-CoV-2 (PCR) Not detected 09/27/19 06:30: WBC 11.7 H, RBC 2.84 L, Hgb 9.4 L, Hct 28.8 L, MCV 101.4 H, MCH 33.1 H, MCHC 32.6, RDW 14.4 H, Plt Count 244, MPV 9.3, Immature Gran % (Auto) 0.40, Immature Gran # (Auto) 0.05 H, Neutrophils % 66.2, Lymphocytes % 20.2, Monocytes % 6.7, Eosinophils % 5.4 H, Basophils % 1.1 H, Nucleated RBC % 0.0, Neutrophils # 7.8 H, Lymphocytes # 2.36, Monocytes # 0.8, Eosinophils # 0.6, Absolute Basophils 0.1 09/27/19 06:30: Sodium 141, Plasma Sodium 141, Potassium 3.6, Chloride 106, Carbon Dioxide 28.9, Anion Gap 9.7, BUN 17 D, Creatinine 0.85, Est GFR (Non-Af Amer) 97 D, BUN/Creatinine Ratio 20.0, Random Glucose 97, Calcium 8.6, Calcium Adj for Albumin 9.6, Total Bilirubin 0.4, AST 40, ALT 39, Alkaline Phosphatase 71, Total Protein 6.4, Albumin 2.4 L Discharge Location: [facility] Disposition: SNF Condition: Poor Face to Face Encounter completed per [facility] Guidelines: Yes - by exam confused, weak and off balance Level of Care: SNF Discharge Activity: Activity as tolerated - activity only with assistance Discharge Diet: General/regular food - three snacks Correction Therapy: Physical Therapy, Occupation Therapy Referrals: Holland Farfan MD [Primary Care Provider] - Problem Oriented Discharge Instructions to Patient/Family: Clostridioides Difficile Infection, [id number] Additional Patient Instructions (free text): DNR Prescriptions (Any new or edited meds): Lorazepam [Ativan Intensol] 0.5 mg PO Q1H PRN #20 ml PRN Reason: restless Prescription Printed Losartan Potassium [Cozaar] 100 mg PO DAILY #30 tab Fluticasone Propionate [Flonase] 1 spray NS DAILY #1 inhaler Folic Acid 1 mg PO DAILY #30 tab Prescription Printed Mvit-Mins/Folic Acid/Soy Isofl [One-A-Day Menopause Formula Tb] 1 ea PO QDIPM #3 0 tab Prescription Printed Vancomycin HCl [Vancomycin] 125 mg PO Q6H #50 ml Thiamine HCl [Vitamin B-1] 100 mg PO DAILY #30 tab Prescription Printed Complete Home Medications List: Complete Home Medication List: Fluticasone Propionate [Flonase] 1 spray NS DAILY #1 inhaler 09/17/19 Folic Acid 1 mg PO DAILY #30 tab 09/17/19 Lorazepam [Ativan Intensol] 0.5 mg PO Q1H PRN #20 ml 09/17/19 Losartan Potassium [Cozaar] 100 mg PO DAILY #30 tab 09/17/19 Mvit-Mins/Folic Acid/Soy Isofl [One-A-Day Menopause Formula Tb] 1 ea PO QDIPM #30 tab 09/17/19 Thiamine HCl [Vitamin B-1] 100 mg PO DAILY #30 tab 09/17/19 Vancomycin HCl [Vancomycin] 125 mg PO Q6H #50 ml 09/17/19 Forms: Patient Portal Registration
[2019-09-27 12:39] VITALS: BP 136/66
== END 2019-09-27 12:40 | DRG 640 ==
LOC: MS 13:51 → ER 13:51 → MS 16:38
PROVIDERS: ADMIT Allergy & Immunology; ATTEND Allergy & Immunology
DX: A04.72 Enterocolitis due to Clostridium difficile, not specified as recurrent; W18.30XA Fall on same level, unspecified, initial encounter; I10 Essential (primary) hypertension; F43.20 Adjustment disorder, unspecified; E44.0 Moderate protein-calorie malnutrition; F17.210 Nicotine dependence, cigarettes, uncomplicated; F10.231 Alcohol dependence with withdrawal delirium; R53.1 Weakness; E51.2 Wernicke's encephalopathy; D53.9 Nutritional anemia, unspecified; E87.6 Hypokalemia; K85.20 Alcohol induced acute pancreatitis without necrosis or infection; R41.82 Altered mental status, unspecified; Y92.231 Patient bathroom in hospital as the place of occurrence of the external cause; N39.0 Urinary tract infection, site not specified
CPT/HCPCS: 36415; 36600; 70450; 70551; 71010; 71045; 74177; 80048; 80053; 80307; 80502; 81001; 82140; 82150; 82373; 82550; 82607; 82705; 82803; 83605; 83690; 83735; 84443; 84484; 85025; 85045; 85652; 86140; 86759; 87040; 87045; 87046; 87086; 87177; 87209; 87328; 87329; 87425; 87493; 87801; 93005; 95812; 95816; 96365; 96366; 96367; 97110; 97116; 97162; 97164; 97165; 97530; 97535; 99285; C9803; G0378; Q9967; U0001